=== PATIENT | female | born 1970 | race Caucasian/White ===

== ENCOUNTER 2018-06-04 12:14 | Emergency (ER) | payer BC ==
[2018-06-04] MEDS ORDERED: SODIUM CHLORIDE 0.9% 1,000 ML IV STA ×2 (12:53)
[2018-06-04 13:18] LABS: Basophils % (A) 0 %; Eosinophils # (A) 0.2 k/uL (0-0.7); Eosinophils % (A) 3 %; HCT 39.7 % (34.0-46.0); HGB 13.1 gm/dL (11.4-16.0); Lymphocytes # (A) 1.7 k/uL (1.0-4.8); Lymphocytes % (A) 31 %; MCH 28.5 pg (25.0-35.0); MCHC 33.1 g/dL (31.0-37.0); MCV 86.2 fL (80.0-100.0); Mean Platelet Volume 6.4; Monocytes # (A) 0.3 k/uL (0-1.0); Monocytes % (A) 6 %; Neutrophils # (A) 3.1 k/uL (1.3-7.7); Neutrophils % (A) 57 %; Platelet Count 285 k/uL (150-450); RBC 4.61 m/uL (3.80-5.40); RDW 12.8 % (11.5-15.5); WBC 5.5 k/uL (3.8-10.6)
[2018-06-04 13:28] LABS: ALT 17 U/L (9-52); AST 28 U/L (14-36); Alkaline Phosphatase 69 U/L (38-126); Anion Gap 9 mmol/L; Blood Urea Nitrogen 16 mg/dL (7-17); Calcium 9.3 mg/dL (8.4-10.2); Carbon Dioxide 22 mmol/L (22-30); Chloride 111 mmol/L (98-107); Glucose 101 mg/dL (74-99); Potassium 4.5 mmol/L (3.5-5.1); Sodium 142 mmol/L (137-145); Total Bilirubin 0.6 mg/dL (0.2-1.3); Total Protein 6.8 g/dL (6.3-8.2)
--- NOTE | 2018-06-04 13:28 | XR ---
EXAMINATION TYPE: XR chest 2V DATE OF EXAM: 06/04/2018 HISTORY: difficulty breathing. REFERENCE: Previous study dated 02/01/2011. FINDINGS: The lungs are clear. Pleural space are clear. The heart is not enlarged. IMPRESSION: NORMAL CHEST.
[2018-06-04 13:31] LABS: Creatine Kinase 106 U/L (30-135)
[2018-06-04 13:36] LABS: D-Dimer 0.36 mg/L FEU (<0.60); INR 1.1 (<1.2); Partial Thromboplastin Time 24.2 sec (22.0-30.0); Prothrombin Time 10.3 sec (9.0-12.0)
[2018-06-04 13:45] LABS: Creatine Kinase MB 0.8 ng/mL (0.0-2.4); Troponin I <0.012 ng/mL (0.000-0.034)
--- NOTE | 2018-06-04 14:40 | ED ---
General Adult HPI - General Chief complaint: Shortness of Breath Stated complaint: Brusing all over body/sob Time Seen by Provider: 06/04/18 12:30 Source: patient, RN notes reviewed, old records reviewed Mode of arrival: ambulatory Limitations: no limitations - History of Present Illness Initial comments: Patient is a 47-year-old female who presents emergency Department with multiple complaints. She reports that over the past week she's noticed a pruritic rash over her lower extremities, only seems to be worse at night. She's also noticed increased bruising over her arms legs. She reports that she also feels is having some trouble with breathing. She states she feels just off and somewhat dizzy. At this time patient's vital signs of an stable. Patient states that she's had no vomiting or diarrhea or abdominal pain. Patient states that she did recently travel from [facility]. - Related Data Previous Rx's Medication Instructions Recorded predniSONE 50 mg PO DAILY #7 tablet 06/04/18 Allergies Allergy/AdvReac Type Severity Reaction Status Date / Time No Known Allergies Allergy Verified 06/04/18 12:25 Review of Systems ROS Statement: Those systems with pertinent positive or pertinent negative responses have been documented in the HPI. ROS Other: All systems not noted in ROS Statement are negative. Past Medical History Past Medical History: No Reported History History of Any Multi-Drug Resistant Organisms: None Reported Additional Past Surgical History / Comment(s): right knee Past Psychological History: No Psychological Hx Reported Smoking Status: Never smoker Past Alcohol Use History: Occasional Past Drug Use History: None Reported General Exam - General Exam Comments Initial Comments: This patient's a 47-year-old female. Alert and oriented. Patient appears in no acute distress. Limitations: no limitations General appearance: alert, in no apparent distress Head exam: Present: atraumatic, normocephalic, normal inspection Eye exam: Present: normal appearance, PERRL, EOMI. Absent: scleral icterus, conjunctival injection, periorbital swelling ENT exam: Present: normal exam, mucous membranes moist Neck exam: Present: normal inspection Respiratory exam: Present: normal lung sounds bilaterally. Absent: respiratory distress, wheezes, rales, rhonchi, stridor Cardiovascular Exam: Present: regular rate, normal rhythm, normal heart sounds. Absent: systolic murmur, diastolic murmur, rubs, gallop, clicks GI/Abdominal exam: Present: soft Extremities exam: Present: normal inspection, full ROM, normal capillary refill. Absent: tenderness, pedal edema, joint swelling, calf tenderness Back exam: Present: normal inspection Neurological exam: Present: alert, oriented X3, CN II-XII intact Psychiatric exam: Present: normal affect, normal mood Skin exam: Present: warm, dry, intact, normal color, rash (Denies erythematous papular pruritic rash over lower extremities. Patient has had bruising patterns of her upper arm and leg. She reports no concern for abuse.) Course Vital Signs 06/04/18 06/04/18 12:22 14:00 Temperature 98.2 F Pulse Rate 97 Respiratory 18 Rate Blood Pressure 136/82 142/98 O2 Sat by Pulse 100 99 Oximetry Medical Decision Making - Medical Decision Making This patient's a 39-year-old female presents emergency Department with multiple complaints, complaining of abnormal bruising, strange rash over her lower extremities for the past week. She also complains of some trouble breathing. She has no wheezing at this time, lungs are clear to auscultation. Patient's EKG was reviewed and negative for any acute process. Chest x-ray was normal. Cardiac enzymes including troponin as well as a d-dimer were both negative. This time Patient is reevaluated. She does feel somewhat well because she is just "off. I examine the Patient with Dr. Christopher. I do believe patient's rash as well as abnormal bruising could be related to an autoimmune vasculitis. He recommends starting the Patient on steroids with follow-up with rheumatology in dermatology. I did discuss close return parameters including worsening shortness of breath or any other complaints. Patient agrees to treatment plan will comply. Will discharge Patient on 50 mg prednisone. - Lab Data Result diagrams: 06/04/18 13:08 06/04/18 13:08 Lab Results 06/04/18 06/04/18 06/04/18 Range/Units 13:08 13:08 13:08 WBC 5.5 (3.8-10.6) k/uL RBC 4.61 (3.80-5.40) m/uL Hgb 13.1 (11.4-16.0) gm/dL Hct 39.7 (34.0-46.0) % MCV 86.2 (80.0-100.0) fL MCH 28.5 (25.0-35.0) pg MCHC 33.1 (31.0-37.0) g/dL RDW 12.8 (11.5-15.5) % Plt Count 285 (150-450) k/uL Neutrophils % 57 % Lymphocytes % 31 % Monocytes % 6 % Eosinophils % 3 % Basophils % 0 % Neutrophils # 3.1 (1.3-7.7) k/uL Lymphocytes # 1.7 (1.0-4.8) k/uL Monocytes # 0.3 (0-1.0) k/uL Eosinophils # 0.2 (0-0.7) k/uL Basophils # 0.0 (0-0.2) k/uL PT (9.0-12.0) sec INR (<1.2) APTT (22.0-30.0) sec D-Dimer (<0.60) mg/L FEU Sodium 142 (137-145) mmol/L Potassium 4.5 (3.5-5.1) mmol/L Chloride 111 H (98-107) mmol/L Carbon Dioxide 22 (22-30) mmol/L Anion Gap 9 mmol/L BUN 16 (7-17) mg/dL Creatinine 0.61 (0.52-1.04) mg/dL Est GFR (CKD-EPI)AfAm >90 (>60 ml/min/1.73 sqM) Est GFR (CKD-EPI)NonAf >90 (>60 ml/min/1.73 sqM) Glucose 101 H (74-99) mg/dL Calcium 9.3 (8.4-10.2) mg/dL Magnesium 2.0 (1.6-2.3) mg/dL Total Bilirubin 0.6 (0.2-1.3) mg/dL AST 28 (14-36) U/L ALT 17 (9-52) U/L Alkaline Phosphatase 69 (38-126) U/L Total Creatine Kinase 106 (30-135) U/L CK-MB (CK-2) 0.8 (0.0-2.4) ng/mL CK-MB (CK-2) Rel Index 0.8 Troponin I <0.012 (0.000-0.034) ng/mL Total Protein 6.8 (6.3-8.2) g/dL Albumin 4.0 (3.5-5.0) g/dL 06/04/18 Range/Units 13:08 WBC (3.8-10.6) k/uL RBC (3.80-5.40) m/uL Hgb (11.4-16.0) gm/dL Hct (34.0-46.0) % MCV (80.0-100.0) fL MCH (25.0-35.0) pg MCHC (31.0-37.0) g/dL RDW (11.5-15.5) % Plt Count (150-450) k/uL Neutrophils % % Lymphocytes % % Monocytes % % Eosinophils % % Basophils % % Neutrophils # (1.3-7.7) k/uL Lymphocytes # (1.0-4.8) k/uL Monocytes # (0-1.0) k/uL Eosinophils # (0-0.7) k/uL Basophils # (0-0.2) k/uL PT 10.3 (9.0-12.0) sec INR 1.1 (<1.2) APTT 24.2 (22.0-30.0) sec D-Dimer 0.36 (<0.60) mg/L FEU Sodium (137-145) mmol/L Potassium (3.5-5.1) mmol/L Chloride (98-107) mmol/L Carbon Dioxide (22-30) mmol/L Anion Gap mmol/L BUN (7-17) mg/dL Creatinine (0.52-1.04) mg/dL Est GFR (CKD-EPI)AfAm (>60 ml/min/1.73 sqM) Est GFR (CKD-EPI)NonAf (>60 ml/min/1.73 sqM) Glucose (74-99) mg/dL Calcium (8.4-10.2) mg/dL Magnesium (1.6-2.3) mg/dL Total Bilirubin (0.2-1.3) mg/dL AST (14-36) U/L ALT (9-52) U/L Alkaline Phosphatase (38-126) U/L Total Creatine Kinase (30-135) U/L CK-MB (CK-2) (0.0-2.4) ng/mL CK-MB (CK-2) Rel Index Troponin I (0.000-0.034) ng/mL Total Protein (6.3-8.2) g/dL Albumin (3.5-5.0) g/dL 06/04/18 14:45 EKG shows normal sinus rhythm abnormal EKG noted. Ventricular rate of 85 bpm. Intervals 1:30 milliseconds. QRS ration 88. QTQTC 366/435 ms. - Radiology Data Radiology results: report reviewed Normal chest x-ray noted. Disposition Clinical Impression: Pruritic dermatitis, Abnormal bruising, Dizziness Disposition: HOME SELF-CARE Condition: Good Instructions: Acute Rash (ED), Dyspnea (ED) Additional Instructions: Patient has follow-up with dermatology and rheumatology as well as her primary care provider. Take the steroids as prescribed, Patient can also use Benadryl for the itching. Return to emergency department if any alarming signs or symptoms occur. Prescriptions: predniSONE 50 mg PO DAILY #7 tablet Is patient prescribed a controlled substance at d/c from ED?: No Referrals: Baldemar Swanson MD [Primary Care Provider] - 1-2 days William Poe MD [STAFF PHYSICIAN] - 1-2 days Tammy Frazier MD [STAFF PHYSICIAN] - 1-2 days Time of Disposition: 14:38
[2018-06-04 14:49] VITALS: BP 136/91; PULSE 85; RESP 16; TEMP 98.6
== END 2018-06-04 14:49 | disposition home or self-care (01) ==
LOC: EC 12:14
DX: L30.8 Other specified dermatitis (principal); R42 Dizziness and giddiness; M79.81 Nontraumatic hematoma of soft tissue; R94.31 Abnormal electrocardiogram [ECG] [EKG]; R06.00 Dyspnea, unspecified
CPT/HCPCS: 36415; 71046; 80053; 82550; 82553; 83735; 84484; 85025; 85379; 85610; 85730; 87040; 93005; 96360; 96361; 99285

== ENCOUNTER → 2018-10-18 | Outpatient (CLI) | payer BC ==
--- NOTE | 2018-10-18 22:29 | US ---
EXAMINATION TYPE: US thyroid st tissue head/neck DATE OF EXAM: 10/18/2018 COMPARISON: None CLINICAL HISTORY: Left Neck Mass K11.8. Palpable area left lateral neck x 2 months per patient. Left Neck scanned area of concern: 2 Hypoechoic areas with echogenic centers seen left lateral neck. 1: 0.8 x 0.3 x 0.4 cm. Vascularity visualized. 2: 1.9 x 0.3 x 0.9 cm. Technologist darling oval well-defined lesions on images saved. First lesion is felt to reflect normal benign lymph node as it is subcentimeter in size on short axis with retained fatty hilum. Second lesi on is elongated and subcentimeter in size but distinct fatty hilum is not identified. IMPRESSION: As above, second lesion does not meet ultrasound characteristics for benign lymph node but is subcent imeter in size still favoring benign etiology. Advise contrast enhanced neck CT to further evaluate t o assess for possible additional lymph nodes and/or throat masses.
== END | disposition home or self-care (01) ==
LOC: RADUSWWP 17:00
PROVIDERS: ATTEND Internal Medicine Geriatric Medicine
DX: K11.8 Other diseases of salivary glands (principal)
CPT/HCPCS: 76536

== ENCOUNTER → 2018-10-20 | Outpatient (CLI) | payer BC ==
--- NOTE | 2018-10-20 09:49 | MM ---
Reason for exam: clinical finding. Last mammogram was performed 8 years and 2 months ago. History: Benign excisional biopsy of the left breast. Physical Findings: Nurse did not find any significant physical abnormalities on exam. MG Diagnostic Mammo w CAD TRACI Bilateral CC, MLO, and LM view(s) were taken. Spot compression MLO view(s) were taken of the right breast. Prior study comparison: August 26, 2010, CAD bilateral diagnostic mammogram. The breast tissue is heterogeneously dense. This may lower the sensitivity of mammography. These results were verbally communicated with the patient and result sheet given to the patient on 10/20/18. ASSESSMENT: Incomplete: need additional imaging evaluation, BI-RAD 0 RECOMMENDATION: Ultrasound of both breasts.
--- NOTE | 2018-10-20 09:50 | USB ---
Reason for exam: additional evaluation requested from abnormal screening. History: Benign excisional biopsy of the left breast. US Breast Limited BILAT Right limited breast ultrasound including focal area of concern, retroareolar and axilla demonstrates no cystic or solid lesion seen. Left limited breast ultrasound including focal area of concern, retroareolar and axilla demonstrates no cystic or solid lesion seen. These results were verbally communicated with the patient and result sheet given to the patient on 10/20/18. ASSESSMENT: Negative, BI-RAD 1 RECOMMENDATION: Routine screening mammogram of both breasts in 1 year.
== END | disposition home or self-care (01) ==
LOC: RADMAMWWP 07:29
PROVIDERS: ATTEND Internal Medicine Geriatric Medicine
DX: N63.0 Unspecified lump in unspecified breast (principal)
CPT/HCPCS: 77066

== ENCOUNTER → 2018-11-15 | Outpatient (CLI) | payer BC ==
--- NOTE | 2018-11-15 08:53 | CT ---
EXAMINATION TYPE: CT soft tissue neck w con DATE OF EXAM: 11/15/2018 HISTORY: Lt neck mass or swelling for 2 months. Soft tissue lymphadenitis per order. COMPARISON: NONE CT DLP: 520.1 mGycm. Automated Exposure Control for Dose Reduction was Utilized. TECHNIQUE: CT scan of the neck is performed with IV Contrast, patient injected with 100 mL of Isovue 300, axial images are obtained, coronal and sagittal reformatted images are reviewed. FINDINGS: There is metallic BB placed at level of palpable abnormality left submandibular region axia l image 50. Normal platysma muscle is seen extending anterior to this. This is at the inferior margin of the left parotid gland. There are few tiny vessels superficial to the sternocleidomastoid muscle . No worrisome solid or cystic mass or fluid collection is noted. Airway: No gross abnormality seen. Parotid/submandibular glands: No gross abnormality seen. Carotid/Vascular Structures: No significant plaque or stenosis at carotid bulb level bilaterally. Cod ominant vertebral basilar system. Osseous Structures: Mild to moderate disc space narrowing and spurring C5-C6 and C6-C7 levels with po sterior spur disc complexes effacing anterior thecal sac. Other: No suspicious greater than 1 cm neck adenopathy. Few scattered subcentimeter lymph nodes are p resent bilaterally. IMPRESSION: No suspicious left-sided mass or adenopathy.
== END | disposition home or self-care (01) ==
LOC: RADCTMAIN 07:17
PROVIDERS: ATTEND Family Medicine
DX: I88.1 Chronic lymphadenitis, except mesenteric (principal)
CPT/HCPCS: 70491; Q9967

== ENCOUNTER → 2019-03-16 | Outpatient (CLI) | payer BC ==
[2019-03-16 10:00] LABS: Basophils % (A) 0 %; Eosinophils # (A) 0.1 k/uL (0-0.7); Eosinophils % (A) 2 %; HCT 41.5 % (34.0-46.0); HGB 13.8 gm/dL (11.4-16.0); Lymphocytes # (A) 1.6 k/uL (1.0-4.8); Lymphocytes % (A) 32 %; MCH 28.6 pg (25.0-35.0); MCHC 33.2 g/dL (31.0-37.0); MCV 86.1 fL (80.0-100.0); Mean Platelet Volume 6.3; Monocytes # (A) 0.3 k/uL (0-1.0); Monocytes % (A) 6 %; Neutrophils # (A) 2.8 k/uL (1.3-7.7); Neutrophils % (A) 58 %; Platelet Count 302 k/uL (150-450); RBC 4.82 m/uL (3.80-5.40); RDW 12.8 % (11.5-15.5); WBC 4.9 k/uL (3.8-10.6)
[2019-03-16 10:33] LABS: Potassium 4.1 mmol/L (3.5-5.1)
== END | disposition home or self-care (01) ==
LOC: LABPAT 09:11
PROVIDERS: ATTEND Orthopaedic Surgery
DX: Z01.812 Encounter for preprocedural laboratory examination (principal); M23.92 Unspecified internal derangement of left knee
CPT/HCPCS: 36415; 80051; 85025

== ENCOUNTER 2019-03-23 08:24 | Day surgery (SDC) | payer BC ==
[2019-03-19 11:02] VITALS: BMI 41.8
--- NOTE | 2019-03-22 10:49 | HP ---
HISTORY AND PHYSICAL CHIEF COMPLAINT: Left knee pain. 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 She notes lateral pain along with occasional swelling and giving way. She has tried medications with only partial temporary relief. She notes the pain severely limits her normal function and activities. PAST MEDICAL HISTORY: Negative. PAST SURGICAL HISTORY: Significant for previous Achilles repair in addition to previous shoulder arthroscopy. CURRENT MEDICATION: Ibuprofen. She denies drug allergies. FAMILY HISTORY: Significant for cancer. SOCIAL HISTORY: Negative for current tobacco or alcohol use. REVIEW OF SYSTEMS: A 16-point review of systems otherwise reviewed and is noncontributory. PHYSICAL EXAMINATION: On examination, the patient is approximately 5 foot 8, 280 pounds of endomorphic habitus. HEENT exam is nonfocal. Neck is supple. She has painless passive motion of her left hip. Straight leg raise is negative. Active motion left knee -10 to 100 degrees of flexion. She has a mild effusion. She is tender about the lateral joint line. Collaterals are stable, Giancarlo is negative, Bradley's elicits lateral pain. Her distal neurovascular appears intact in the left lower extremity. Weightbearing, notch, lateral and Merchant views of the left knee obtained in the office show moderate medial and patellofemoral compartment narrowing. MRI report from 01/31/2019 Left knee shows evidence of a chondral defect involving the lateral tibial plateau in addition to lateral patellar facet chondral injury and femoral trochlear chondral injury. IMPRESSION: Left knee internal derangement with possible lateral tibial chondral injury. RECOMMENDATIONS: I talked to the patient at length regarding her condition and treatment options. At this point, she is quite symptomatic despite conservative measures and opts to proceed with surgery. We will plan to proceed with arthroscopic evaluation with possible lateral tibial chondrectomy. Risks and benefits were discussed at length in layman's terms. We will likely perform that as an outpatient procedure. MMODL / IJN: [id number] /
[~2019-03-23 08:24] MED LIST: DEXAMETHASONE SOD PHOSPHATE 10 MG/ML 1 ML VIAL IV ONE; LACTATED RINGERS 1,000 ML IV SCH; MIDAZOLAM 2 MG/2 ML VIAL IV PRN; ONDANSETRON 4 MG/2 ML VIAL IVP ONE; SCOPOLAMINE 1.5MG/72HR PATCH TRANSDERM ONE; ceFAZolin 3 GM in SODIUM CHLORIDE 0.9% 100 ML IVPB ONE
[2019-03-23 09:02] VITALS: TEMP 97.4
[2019-03-23] MEDS ORDERED: fentaNYL (PF) 50 MCG/ML 2 ML AMP IVP ONE (09:20)
[2019-03-23] MEDS ORDERED: LIDOCAINE 1% INJ 10MG/ML (20 ML MDV) ONE (09:53)
[2019-03-23] MEDS ORDERED: MIDAZOLAM 2 MG/2 ML VIAL ONE (09:53)
[2019-03-23] MEDS ORDERED: KETOROLAC 30 MG/ML 1 ML VIAL ONE (09:53)
[2019-03-23] MEDS ORDERED: HYDROmorphone (PF) 1 MG/ML ONE (09:53)
[2019-03-23] MEDS ORDERED: fentaNYL (PF) 50 MCG/ML 2 ML AMP ONE (09:53)
[2019-03-23] MEDS ORDERED: PROPOFOL 10 MG/ML 20 ML VIAL IV ONE (09:53)
[2019-03-23] MEDS ORDERED: SUCCINYLCHOLINE CHLORIDE 100 MG/5 ML SYR IV ONE (09:53)
[2019-03-23] MEDS ORDERED: EPINEPHrine (PF) 1 ML in SODIUM CHLORIDE 0.9% IRRIGATIO 3,000 ML IRRIGATION ONE ×4 (10:20)
--- NOTE | 2019-03-23 10:57 | P.OP ---
Date of Procedure: 03/23/19 Preoperative Diagnosis: Left knee internal derangement Postoperative Diagnosis: Left knee posterior lateral meniscal tear/grade 3 chondral injury distal medial femoral condyle/loose body Procedure(s) Performed: Left knee arthroscopic partial lateral meniscectomy/medial femoral chondrectomy/microfracture medial femoral condyle/loose body removal Anesthesia: BEBO Surgeon: Cedric Rodriguez Estimated Blood Loss (ml): 10 Pathology: none sent Condition: stable Disposition: PACU Indications for Procedure: The patient's a 48-year-old female who presents with progressive left knee pain and mechanical symptoms despite conservative measures. A discussion of the risks and benefits of operative intervention versus continued conservative measures was made with the patient. She opted to proceed. Operative risks to include infection, neurovascular injury, development of blood clots, possible incomplete resolution of symptoms, possible worsening symptoms and need for subsequent procedures was discussed. Informed consent was obtained. Operative Findings: As below Description of Procedure: The patient was brought to the operating room, and after induction of general anesthesia examined the left knee. Collaterals were stable, Giancarlo was negative, and posterior drawer was negative. The left lower extremity was prepped and draped in a normal fashion. A superior lateral portal was made through a 3 mm skin incision superior and lateral to the patella. This was used for outflow. A lateral portal was made through a 5 mm vertical skin incision lateral to the patella tendon above the joint line. Diagnostic arthroscopy was performed. On inspection of the medial compartment, a grade 3 chondral injury was noted involving the distal medial portion of the medial femoral condyle. There were several loose chondral flaps treated back to stable base with a motorized shaver. The medial meniscus was stable and intact. Microfractures performed utilizing a chondral breeching the subchondral surface down to the bone marrow elements. On inspection of the notch, the anterior cruciate ligament appeared to be intact. On inspection of the lateral compartment, and oblique tear involving the posterior lateral meniscus was noted in the white- white junction. This was debrided back to stable base with straight baskets and a motorized shaver. The remaining lateral meniscus was stable and intact. Diffuse grade 2 chondral changes were noted in the lateral compartment.. On inspection of the patellofemoral articulation there was a loose body in the lateral gutter. This was removed with a grasper. There is grade 3/4 chondral changes noted involving the lateral femoral trochlea and lateral facet.. The knee was then thoroughly irrigated. The portals were closed with Steri-Strips. A sterile dressing was applied in addition to a compression stocking. The patient was awoken from general anesthesia and transferred to recovery room in good condition. Blood loss was estimated at 10 mL. No complications were incurred.
[2019-03-23] MEDS: HYDROmorphone 0.5 MG/0.5 ML SYRINGE IVP PRN ×4 (11:00→11:26)
[2019-03-23] MEDS ORDERED: ENALAPRILAT 1.25 MG/ML 1 ML VIAL IV ONE (11:26)
[2019-03-23] MEDS ORDERED: ENALAPRILAT 1.25 MG/ML 1 ML VIAL IVP ONE (11:34)
[2019-03-23] MEDS ORDERED: MEPERIDINE 50 MG/ML SYRINGE IVP ONE (11:50)
[2019-03-23] MEDS ORDERED: PROMETHAZINE INJ 25 MG/ML 1 ML VIAL IVPB ONE (12:56)
[2019-03-23 14:36] VITALS: BP 123/85; PULSE 92; RESP 18
[2019-03-23] MEDS ORDERED: IBUPROFEN 200 MG TAB PO ONE (14:50)
== END 2019-03-23 15:44 | disposition home or self-care (01) ==
LOC: OR 08:24
PROVIDERS: ATTEND Orthopaedic Surgery
DX: S83.282A Other tear of lateral meniscus, current injury, left knee, initial encounter (principal); S83.32XA Tear of articular cartilage of left knee, current, initial encounter; X58.XXXA Exposure to other specified factors, initial encounter; E66.9 Obesity, unspecified; Z68.41 Body mass index [BMI] 40.0-44.9, adult; Z79.891 Long term (current) use of opiate analgesic; Z79.1 Long term (current) use of non-steroidal anti-inflammatories (NSAID)
CPT/HCPCS: 81025; 29881; 29879; J2250; J1100; J2550; J2175; J0690; J2405; J0171; J2001; J3010; J1885; J1170 ×2; J0330; J2704

== ENCOUNTER → 2019-03-30 | Outpatient (CLI) | payer BC ==
--- NOTE | 2019-03-30 15:01 | US ---
EXAMINATION TYPE: US venous doppler duplex LE LT DATE OF EXAM: 03/30/2019 2:46 PM COMPARISON: NONE CLINICAL HISTORY: M79.662 R22.42 Pain Swelling Left Lower Leg. SIDE PERFORMED: Left TECHNIQUE: The lower extremity deep venous system is examined utilizing real time linear array sonog kadeem with graded compression, doppler sonography and color-flow sonography. VESSELS IMAGED: External Iliac Vein (EIV) Common Femoral Vein Deep Femoral Vein Greater Saphenous Vein * Femoral Vein Popliteal Vein Small Saphenous Vein * Proximal Calf Veins (* superficial vessels) Left Leg: Negative for DVT Preliminary results phoned to Norma at Dr. Connors' office immediately following exam. IMPRESSION: 1. Left lower extremity ultrasound negative for deep venous thrombosis.
== END | disposition home or self-care (01) ==
LOC: RADUSWWP 14:13
PROVIDERS: ATTEND Orthopaedic Surgery
DX: M79.662 Pain in left lower leg (principal)

== ENCOUNTER → 2020-10-08 | Outpatient (CLI) | payer BC ==
--- NOTE | 2020-10-09 09:52 | CT ---
EXAMINATION TYPE: CT angio neck DATE OF EXAM: 10/08/2020 COMPARISON: None HISTORY: 49-year-old female I77.1, stricture of artery. Dizziness, left sided neck swelling, left arm pain and numbness TECHNIQUE: Contiguous axial scanning of the neck performed with IV Contrast, patient injected with 65 cc mL of Isovue 370. Coronal/sagittal MIP reconstructions performed. 3-D reconstructions generated on a dedicated PET workstation. CT DLP: 385.8 mGycm Automated exposure control for dose reduction was used. FINDINGS: There may be some tree-in-bud opacities in the visualized upper lobes. Conventional arch vessel branching anatomy. Dense contrast bolus on the left side obscures the proximal most left vertebral artery. Otherwise, th e remaining vertebral arteries are codominant and patent throughout the course. The right common and internal carotid arteries are patent. Left common and internal carotid arteries are patent. Some focal tortuosity of the upper ICAs and both sides. Moderate disc/endplate degenerative change lower cervical spine. IMPRESSION: 1. TORTUOUS BILATERAL UPPER CERVICAL ICA's. 2. THE PROXIMAL MOST LEFT VERTEBRAL ARTERY IS OBSCURED BY THE DENSE CONTRAST BOLUS. OTHERWISE, WIDELY PATENT CAROTID AND VERTEBRAL ARTERIES OF THE NECK. 3. CORRELATE FOR ANY RESPIRATORY SYMPTOMS. THERE MAY BE SOME SUBTLE TREE-IN-BUD OPACITIES IN THE VISU ALIZED UPPER LUNGS THAT MAY BE SEEN WITH BRONCHIOLITIS.
== END ==
LOC: RADCTMAIN 18:34
PROVIDERS: ATTEND Internal Medicine Geriatric Medicine
DX: I77.1 Stricture of artery (principal)
CPT/HCPCS: 70498; Q9967

== ENCOUNTER 2021-10-26 21:38 | Emergency (ER) | payer BC ==
[2021-10-26 21:50] VITALS: TEMP 97.5
--- NOTE | 2021-10-26 23:29 | ED ---
Chest Pain HPI - General Chief Complaint: Chest Pain Stated Complaint: TRISTAN,Chest Pain Time Seen by Provider: 10/26/21 22:44 Source: patient Mode of arrival: ambulatory Limitations: no limitations - History of Present Illness Initial Comments: This patient is a 50-year-old woman presenting to be evaluated for upper chest pain that is been going on between 1 and 2 weeks. She describes as a heavy feeling that she is not able to characterize well. She states it also seems to be into the left side of her neck and she is following with ENT tomorrow. She is due to have an effusion drained from her left ear. She states that this will be followed by another procedure November 12. She has been having left ear and neck pains going back quite some time and did recently have a CT and an MRI done of the area. The patient denies any anginal type symptoms. No diaphoresis, dyspnea, nausea vomiting, palpitations, lightheadedness or syncope. MD Complaint: chest pain -: week(s) Onset: during rest Pain Location: substernal Pain Radiation: none Severity: mild Quality: heaviness Consistency: intermittent Improves With: other (Position) Worsens With: nothing Treatments Prior to Arrival: none - Related Data Home Medications Medication Instructions Recorded Confirmed clindamycin HCL [Cleocin] 300 mg PO BID 10/26/21 10/26/21 predniSONE See Taper PO DAILY 10/26/21 10/26/21 Allergies Allergy/AdvReac Type Severity Reaction Status Date / Time No Known Allergies Allergy Verified 10/26/21 21:50 Review of Systems ROS Statement: Those systems with pertinent positive or pertinent negative responses have been documented in the HPI. ROS Other: All systems not noted in ROS Statement are negative. Constitutional: Denies: fever, chills Respiratory: Reports: dyspnea. Denies: cough Cardiovascular: Reports: as per HPI, chest pain. Denies: palpitations, orthopnea, edema, syncope Gastrointestinal: Denies: abdominal pain, nausea, vomiting, diarrhea, constipation Genitourinary: Denies: urgency, dysuria, frequency Musculoskeletal: Denies: back pain Skin: Denies: rash Neurological: Reports: headache (Being seen by ENT physician for effusion and left ear pain) EKG Findings - EKG Comments: EKG Findings:: There is possible atrial enlargement. - EKG Results: EKG: interpreted by JUDAH, sinus rhythm, normal axis, normal QRS, normal ST/T Past Medical History Past Medical History: No Reported History History of Any Multi-Drug Resistant Organisms: None Reported Additional Past Surgical History / Comment(s): achillles tenden repair on lt, rt knee arthrosocpy. recent rt shoulder sx(05-02-14). Past Anesthesia/Blood Transfusion Reactions: No Reported Reaction Past Psychological History: No Psychological Hx Reported Smoking Status: Never smoker Past Alcohol Use History: Occasional Past Drug Use History: None Reported - Past Family History Father Family Medical History: Hypertension Additional Family Medical History / Comment(s): dad is 75 Mother Family Medical History: Cancer, Thyroid Disorder Additional Family Medical History / Comment(s): mom is 65- has stage 4 ovarian cancer. hx manic deprsssive, General Exam Limitations: no limitations General appearance: alert, in no apparent distress Head exam: Present: atraumatic, normocephalic Eye exam: Present: normal appearance Neck exam: Present: normal inspection, full ROM. Absent: tenderness Respiratory exam: Present: normal lung sounds bilaterally. Absent: respiratory distress, wheezes, rales, rhonchi, stridor, chest wall tenderness Cardiovascular Exam: Present: regular rate, normal rhythm, normal heart sounds. Absent: systolic murmur, diastolic murmur, rubs, gallop GI/Abdominal exam: Present: soft. Absent: distended, tenderness, guarding, rebound, rigid, mass Extremities exam: Present: normal inspection, normal capillary refill. Absent: pedal edema, calf tenderness Back exam: Present: normal inspection. Absent: CVA tenderness (R), CVA tenderness (L) Neurological exam: Present: alert Skin exam: Present: warm, dry, intact, normal color. Absent: rash Course Vital Signs 10/26/21 10/26/21 10/27/21 21:47 23:35 00:52 Temperature 97.5 F L Pulse Rate 90 77 78 Respiratory 18 18 16 Rate Blood Pressure 152/92 150/89 147/92 O2 Sat by Pulse 99 95 98 Oximetry Disposition Clinical Impression: Chest pain Disposition: HOME SELF-CARE Condition: Good Instructions (If sedation given, give patient instructions): Chest Pain (ED) Additional Instructions: As we discussed, follow with the learning analyst to discuss the tree-in-bud findings from your previous computed tomography scan. I have listed the on-call learning analyst, but call your primary care physician to see if there learning analyst of choice is available sooner Is patient prescribed a controlled substance at d/c from ED?: No Referrals: Hima Chavez MD [Primary Care Provider] - 1-2 days Mirza Crump MD [STAFF PHYSICIAN] - 1-2 days
--- NOTE | 2021-10-27 00:07 | XR ---
EXAMINATION TYPE: XR chest 2V DATE OF EXAM: 10/26/2021 COMPARISON: 05/27/2018 HISTORY: Short of breath. Chest pain TECHNIQUE: FINDINGS: Heart and mediastinum are normal. Lungs are clear. Diaphragm is normal. Bony thorax appears normal. IMPRESSION: Normal chest. No change from
[2021-10-27 00:37] LABS: Basophils # (A) 0.1 k/uL (0-0.2); Basophils % (A) 1 %; Eosinophils % (A) 0 %; HGB 13.4 gm/dL (11.4-16.0); Lymphocytes % (A) 15 %; MCHC 33.4 g/dL (31.0-37.0); MCV 89.8 fL (80.0-100.0); Mean Platelet Volume 7.3; Monocytes # (A) 0.3 k/uL (0-1.0); Monocytes % (A) 4 %; Neutrophils # (A) 5.5 k/uL (1.3-7.7); Neutrophils % (A) 80 %; Platelet Count 316 k/uL (150-450); RBC 4.45 m/uL (3.80-5.40); RDW 12.4 % (11.5-15.5); WBC 6.9 k/uL (3.8-10.6)
[2021-10-27] MEDS ORDERED: MORPHINE SULFATE 4 MG/ML SYRINGE IV STA (00:38)
[2021-10-27 00:44] LABS: ALT 16 U/L (4-34); AST 19 U/L (14-36); African American GFR (CKD) >90 (>60 ml/min/1.73 sqM); Albumin 4.4 g/dL (3.5-5.0); Alkaline Phosphatase 71 U/L (38-126); Anion Gap 8 mmol/L; Blood Urea Nitrogen 23 mg/dL (7-17); Calcium 9.5 mg/dL (8.4-10.2); Carbon Dioxide 28 mmol/L (22-30); Chloride 102 mmol/L (98-107); Glucose 136 mg/dL (74-99); Magnesium 2.1 mg/dL (1.6-2.3); Non-African American GFR(CKD) >90 (>60 ml/min/1.73 sqM); Potassium 4.6 mmol/L (3.5-5.1); Sodium 138 mmol/L (137-145); Total Bilirubin 0.5 mg/dL (0.2-1.3); Total Protein 7.1 g/dL (6.3-8.2)
[2021-10-27 00:49] LABS: INR 0.9 (<1.2); Partial Thromboplastin Time 23.7 sec (22.0-30.0); Prothrombin Time 10.4 sec (9.0-12.0)
[2021-10-27 00:53] VITALS: RESP 16
[2021-10-27 01:42] VITALS: BP 146/94; PULSE 84
== END 2021-10-27 01:39 | disposition home or self-care (01) ==
LOC: EC 21:38
DX: R07.9 Chest pain, unspecified (principal)
CPT/HCPCS: 36415; 93005; 85379; 80053; 83735; 84484; 85025; 85610; 85730; 71046; 99285; 96372; J2270

== ENCOUNTER → 2021-11-06 | Outpatient (CLI) | payer BC ==
[2021-11-06 10:55] LABS: Basophils # (A) 0.03 X 10*3/uL (0.00-0.10); Basophils % (A) 0.5 %; Eosinophils % (A) 1.8 %; HCT 39.5 % (37.2-46.3); HGB 13.3 g/dL (12.0-15.0); Immature Grans, Automated 0.9 %; Lymphocytes # (A) 2.28 X 10*3/uL (0.90-5.00); Lymphocytes % (A) 40.9 %; MCH 29.5 pg (27.0-32.0); MCHC 33.7 g/dL (32.0-37.0); MCV 87.6 fL (80.0-97.0); Mean Platelet Volume 9.2 fL (9.5-12.2); Monocytes # (A) 0.58 X 10*3/uL (0.20-1.00); Monocytes % (A) 10.4 %; NRBC Per 100 WBC 0 /100 WBCS (0.0-0.0); Neutrophils # (A) 2.53 X 10*3/uL (1.80-7.70); Neutrophils % (A) 45.5 %; Platelet Count 272 X 10*3/uL (140-440); RBC 4.51 X 10*6/uL (4.10-5.20); RDW 12.5 % (11.5-14.5); WBC 5.57 X 10*3/uL (4.50-10.00)
[2021-11-06 17:47] LABS: EBV-EA (IgG) >8.0 AI; EBV-EBNA(IgG) >8.0 AI; EBV-VCA (IgM) <0.2 AI
== END | disposition home or self-care (01) ==
LOC: LABWHC1 07:55
PROVIDERS: ATTEND Otolaryngology
DX: Z00.00 Encounter for general adult medical examination without abnormal findings (principal)
CPT/HCPCS: 36415; 83615; 85025; 86663; 86664; 86665

== ENCOUNTER → 2021-11-09 | Outpatient (CLI) | payer BC ==
--- NOTE | 2021-11-10 12:49 | CT ---
EXAMINATION TYPE: CT chest wo con, CT neck chest w con DATE OF EXAM: 11/09/2021 COMPARISON: Chest x-ray 11/27/2021 CT angiogram of the neck 10/08/2020, soft tissue neck 11/15/2018 HISTORY: SOB (accession [id number]), SOB, left sided neck swelling, dysphagia (accession [id number]) CT DLP: 474.3 (accession [id number]), 1031.2 (accession [id number]) mGycm. Automated Exposure Control fo r Dose Reduction was Utilized. TECHNIQUE: CT scan of the thorax is performed without and with IV contrast. Patient received 100 cc Isovue-300 IV, postcontrast images also obtained through the neck. FINDINGS: CT neck shows the skull base to be normal. The airway is patent. Calcifications along the p alatine tonsil consistent with chronic infection. Epiglottis shows a normal appearance, uvula within normal limits. Salivary glands show symmetric appearance. No evident adenopathy. Normal vascular enha ncement is present. Thyroid gland shows an unremarkable appearance. Level of the true and false cords is normal. Degenerative disc changes are present cervical spine. LUNGS: The lungs are grossly clear, there is no concerning parenchymal mass or nodule identified. T here is no pleural effusion or pneumothorax seen. The tracheobronchial tree is patent. MEDIASTINUM: Lack of IV contrast is noted to limit evaluation for mediastinal and especially hilar ad enopathy. There are no definitive greater than 1 cm hilar or mediastinal lymph nodes. No cardiomega ly or pericardial effusion is seen. OTHER: Upper abdomen within normal limits. IMPRESSION: No significant abnormality to account for patient's symptoms. There are degenerative disc changes in the cervical spine. No evident hiatal hernia.
== END | disposition home or self-care (01) ==
LOC: RADCTMAIN 17:52
PROVIDERS: ATTEND Otolaryngology
DX: D38.5 Neoplasm of uncertain behavior of other respiratory organs (principal); K11.1 Hypertrophy of salivary gland; D37.05 Neoplasm of uncertain behavior of pharynx; R22.1 Localized swelling, mass and lump, neck; R13.10 Dysphagia, unspecified; R06.00 Dyspnea, unspecified
CPT/HCPCS: 70491; 71260; Q9967; 71250

== ENCOUNTER 2022-06-29 06:17 | Day surgery (SDC) | payer BC ==
[2022-06-28 13:46] VITALS: BMI 36.5
[~2022-06-29 06:17] MED LIST changes: -DEXAMETHASONE SOD PHOSPHATE 10 MG/ML 1 ML VIAL IV ONE; +LIDOCAINE 1% (10MG/ML) FOR IV START INTRADERMA PRN; -MIDAZOLAM 2 MG/2 ML VIAL IV PRN; -ONDANSETRON 4 MG/2 ML VIAL IVP ONE; -SCOPOLAMINE 1.5MG/72HR PATCH TRANSDERM ONE; -ceFAZolin 3 GM in SODIUM CHLORIDE 0.9% 100 ML IVPB ONE
[2022-06-29] MEDS ORDERED: LACTATED RINGERS 1,000 ML IV ONE (06:40)
[2022-06-29 06:58] VITALS: TEMP 97
[2022-06-29] MEDS ORDERED: LIDOCAINE 2% INJ 20 MG/ML (2 ML VIAL) ONE (07:18)
[2022-06-29] MEDS ORDERED: PROPOFOL 10 MG/ML 20 ML VIAL IV ONE (07:18)
--- NOTE | 2022-06-29 07:43 | P.PCN ---
Date of Procedure: 06/29/22 Procedure(s) Performed: Brief history: Patient is a 51-year-old pleasant white female scheduled for an elective upper endoscopy as well as colonoscopy as a part of evaluation of and diffuse abdominal pain and change in bowel habits for the last several months duration. Pain is mostly in the right upper quadrant area patient in the right lower quadrant area radiating to the left upper quadrant area is almost constant with no aggravating or relieving factors. Occasionally has constipation. Recent CT of the abdomen and pelvis was unremarkable. Procedure performed: Esophagogastroduodenoscopy with biopsy Colonoscopy Preoperative diagnosis: Diffuse abdominal pain and change in bowel habits Anesthesia: MAC Procedure: After informed consent was obtained from the patient was brought into the endoscopy unit and IV sedation was administered by anesthesia under continuous monitoring. Initially upper endoscopy was done. The Olympus GF 160 video endoscope was inserted inserted into the mouth and esophagus intubated without any difficulty and was gradually advanced into the stomach and duodenum and carefully examined. The bulb and second part of the duodenum appeared normal. The scope was then withdrawn into the stomach adequately insufflated with air and upon careful examination the antrum had mild gastritis and biopsies were done from this area. Mucosa of the body, cardia and fundus appeared normal. The scope was then withdrawn into the esophagus. The GE junction was located at 40 cm to the incisors. It appeared regular with no erythema erosions or ulcerations. Abscesses were also done from the esophagus. Rest of the esophagus appeared normal. Patient tolerated the procedure well. At this time the patient continued to remain sedation. Initial digital rectal examination was normal. Olympus CF 160 video colonoscope was then inserted into the rectum and gradually advanced to the cecum without any difficulty. Careful examination was performed as the scope was gradually being withdrawn. The prep was excellent. The cecum, ascending colon, transverse colon, descending colon, sigmoid colon and rectum appeared normal. Retroflexion was performed in the rectum and no lesions were noted. Patient tolerated the procedure well. Impression: 1. Upper endoscopy revealed minimal antral gastritis but no evidence of esophagitis or peptic ulcer disease 2. Colonoscopy was within normal limits with no evidence of colorectal neoplasia Recommendations: Findings of this examination were discussed with the patient as well as her family. She was advised to follow with the biopsy results. Recommend repeat screening colonoscopy in 10 years.
[2022-06-29 07:49] VITALS: RESP 16
[2022-06-29 08:07] VITALS: BP 126/75; PULSE 80
== END 2022-06-29 08:17 | disposition home or self-care (01) ==
LOC: ORWHC2ENDO 06:17
PROVIDERS: ATTEND Internal Medicine Gastroenterology
DX: K29.50 Unspecified chronic gastritis without bleeding (principal); R19.4 Change in bowel habit; I25.10 Atherosclerotic heart disease of native coronary artery without angina pectoris; I10 Essential (primary) hypertension; E78.5 Hyperlipidemia, unspecified; Z79.899 Other long term (current) drug therapy; Z79.01 Long term (current) use of anticoagulants
CPT/HCPCS: 81025; 88305; 45378; 43239; J2704; J2001

== ENCOUNTER 2023-01-13 10:43 | Day surgery (SDC) | payer BC ==
[2023-01-11 17:14] VITALS: BMI 32.6
[~2023-01-13 10:43] MED LIST changes: +DEXAMETHASONE SOD PHOSPHATE 4 MG/ML 1 ML VIAL IV ONE; +FAMOTIDINE 20 MG/2 ML VIAL IV PRN; +HYDROmorphone 0.5 MG/0.5 ML SYRINGE IVP PRN; +ONDANSETRON 4 MG/2 ML VIAL IVP ONE; +droPERidol 5 MG/2 ML VIAL IVP ONE
[2023-01-13] MEDS ORDERED: LACTATED RINGERS 1,000 ML IV ONE (10:59)
[2023-01-13] MEDS ORDERED: LIDOCAINE 2% INJ 20 MG/ML (2 ML VIAL) ONE (13:04)
[2023-01-13] MEDS ORDERED: PROPOFOL 10 MG/ML 20 ML VIAL IV ONE (13:04)
[2023-01-13] MEDS ORDERED: MIDAZOLAM 2 MG/2 ML VIAL ONE (13:04)
[2023-01-13] MEDS ORDERED: fentaNYL (PF) 50 MCG/ML 2 ML AMP ONE (13:04)
[2023-01-13] MEDS ORDERED: CIPROFLOXACIN-DEXAMETH 0.3-0.1% DROPS 7.5 ML BTL LEFT EAR ONE (13:06)
[2023-01-13 13:39] VITALS: RESP 16; TEMP 97.5
--- NOTE | 2023-01-13 13:49 | P.OP ---
Date of Procedure: 01/13/23 Preoperative Diagnosis: Eustachian tube obstruction, cartilaginous, chronic serous otitis media left ear, conductive hearing loss Postoperative Diagnosis: same all Procedure(s) Performed: Left direct microscopic tympanostomy with T-Tube placement Anesthesia: MAC Surgeon: Saran Villalba Estimated Blood Loss (ml): 0 Pathology: none sent Condition: stable Disposition: PACU Indications for Procedure: Patient has had persistent problems with a left middle ear effusion and eustachian tube dysfunction and obstruction. Patient failed appropriate medical therapy. Patient requests tube placement. Operative Findings: Patient was found to have a left middle ear effusion Description of Procedure: Patient was taken to the operative room and placed in the supine position. IV sedation was administered and LMA in place in the left ear was visualized with a variable focus Zeiss microscope. Cerumen and epithelial debris was removed from the external auditory canal. Tympanostomy incision was made anteriorly and inferiorly fluid was suctioned and a T-tube was placed. Excellent placement was obtained. Ofloxacin drops were were demonstrated and the patient was taken to postanesthesia recovery in excellent condition. Patient is to call if any problems should arise.
[2023-01-13 14:49] VITALS: BP 108/70; PULSE 69
== END 2023-01-13 14:50 | disposition home or self-care (01) ==
LOC: OR 10:43
PROVIDERS: ATTEND Otolaryngology
DX: H65.22 Chronic serous otitis media, left ear (principal); H90.2 Conductive hearing loss, unspecified; I25.10 Atherosclerotic heart disease of native coronary artery without angina pectoris; I10 Essential (primary) hypertension; E78.5 Hyperlipidemia, unspecified; Z95.5 Presence of coronary angioplasty implant and graft; N39.0 Urinary tract infection, site not specified; Z79.82 Long term (current) use of aspirin; Z79.899 Other long term (current) drug therapy
CPT/HCPCS: 69436; J1100; J2405

== ENCOUNTER 2023-01-16 05:09 | Inpatient (IN) | payer BC ==
[2023-01-16 05:56] LABS: Basophils % (A) 0 %; Eosinophils # (A) 0.1 k/uL (0-0.7); Eosinophils % (A) 2 %; HCT 36.4 % (34.0-46.0); Lymphocytes # (A) 2.3 k/uL (1.0-4.8); Lymphocytes % (A) 47 %; MCH 29.2 pg (25.0-35.0); MCV 88.5 fL (80.0-100.0); Mean Platelet Volume 7.5; Monocytes # (A) 0.4 k/uL (0-1.0); Monocytes % (A) 8 %; Neutrophils % (A) 40 %; Platelet Count 251 k/uL (150-450); RBC 4.11 m/uL (3.80-5.40); RDW 12.9 % (11.5-15.5); WBC 4.9 k/uL (3.8-10.6)
[2023-01-16 06:06] LABS: ALT 20 U/L (4-34); AST 23 U/L (14-36); African American GFR (CKD) >90 (>60 ml/min/1.73 sqM); Albumin 3.8 g/dL (3.5-5.0); Alkaline Phosphatase 62 U/L (38-126); Anion Gap 8 mmol/L; Blood Urea Nitrogen 21 mg/dL (7-17); Carbon Dioxide 25 mmol/L (22-30); Chloride 108 mmol/L (98-107); Glucose 84 mg/dL (74-99); Non-African American GFR(CKD) >90 (>60 ml/min/1.73 sqM); Potassium 3.6 mmol/L (3.5-5.1); Sodium 141 mmol/L (137-145); Total Bilirubin 0.7 mg/dL (0.2-1.3); Total Protein 6.1 g/dL (6.3-8.2)
[2023-01-16 06:22] LABS: INR 1.1 (<1.2); Partial Thromboplastin Time 22.9 sec (22.0-30.0); Prothrombin Time 11.1 sec (9.0-12.0)
[2023-01-16] MEDS ORDERED: NITROGLYCERIN OINT 1 INCH/GM PACKET TOPICAL STA (06:34)
[2023-01-16] MEDS ORDERED: ASPIRIN 81 MG PO STA (06:34)
--- NOTE | 2023-01-16 06:34 | ED ---
Chest Pain HPI - General Chief Complaint: Chest Pain Stated Complaint: Chest pain, SOB Time Seen by Provider: 01/16/23 06:07 Source: patient, RN notes reviewed Mode of arrival: wheelchair Limitations: no limitations - History of Present Illness Initial Comments: Patient is a pleasant 52-year-old female presenting to the emergency room from home with complaints of chest pain midsternal pressure-like with associated shortness of breath, generalized malaise, headache and diaphoresis. Her symptoms are worse with activity. She reports that her symptoms began on Tuesday however she thought she was possibly coming down with a bug or dehydrated consequently she rested and drink plenty of fluids however when her pain woke her out of a sleep earlier this morning she presented to the emergency room. She had a stent placed to her LAD in February of last year at [facility]; She was evaluated by local cms expert at [facility] and reports that she was advised that she had 60% occlusion in her LAD and consequently later went to emergency room at [facility] due to continued chest pain symptoms repeat cardiac catheterization revealed 90% occlusion to her LAD that she underwent PCI stenting to. She has been on Brillinta and a baby aspirin since she had her stent placed but unfortunately last week she needed surgery of her left ear and was taken off of all her anticoagulant/antiplatelet including aspirin and brillinta. She still has not resume these medications. She states that she contacted her cms expert regarding her symptoms but has not received a call back from the on-call cms expert. She also notes some episodes of transient tachycardia and hypotension though she is not having any at this time. In addition to her known CAD she has a past medical history significant for hypertension and hyperlipidemia. She denies any shortness of breath at rest. She does continue to have chest pain and a headache. She reports some generalized malaise. She denies any abdominal pain, nausea, vomiting, lower extremity edema, fevers or chills. - Related Data Home Medications Medication Instructions Recorded Confirmed Aspirin [Adult Low Dose Aspirin EC] 81 mg PO DAILY 06/28/22 01/16/23 Losartan [Cozaar] 25 mg PO DAILY 06/29/22 01/16/23 Atorvastatin [Lipitor] 80 mg PO HS 01/11/23 01/16/23 Metoprolol Succinate (ER) [Toprol 25 mg PO DAILY 01/11/23 01/16/23 Xl] Ticagrelor [Brilinta] 90 mg PO DAILY 01/11/23 01/16/23 Ciprofloxacin HCl [Cipro] 500 mg PO Q12HR 01/16/23 01/16/23 Fluticasone Furoate [Flonase 1 - 2 spray NASAL HS 01/16/23 01/16/23 Sensimist] Linaclotide [Linzess] 145 mcg PO DAILY 01/16/23 01/16/23 Multivitamins, Thera [Multivitamin 1 tab PO DAILY 01/16/23 01/16/23 (formulary)] hydroCHLOROthiazide [Hydrodiuril] 25 mg PO DAILY PRN 01/16/23 01/16/23 Previous Rx's Medication Instructions Recorded Ofloxacin 0.3% Ophth Soln [Ocuflox 5 drops LEFT EAR BID 5 Days #10 ml 01/13/23 Ophth Soln] Allergies Allergy/AdvReac Type Severity Reaction Status Date / Time No Known Allergies Allergy Verified 01/16/23 11:34 Review of Systems ROS Statement: Those systems with pertinent positive or pertinent negative responses have been documented in the HPI. ROS Other: All systems not noted in ROS Statement are negative. Past Medical History Past Medical History: Coronary Artery Disease (CAD), Chest Pain / Angina, Hyperlipidemia, Hypertension Additional Past Medical History / Comment(s): pt states dark stools History of Any Multi-Drug Resistant Organisms: None Reported Past Surgical History: Ear Surgery, Heart Catheterization With Stent Additional Past Surgical History / Comment(s): achilles tendon repair on lt, rt knee arthroscopy, rt shoulder sx. Past Anesthesia/Blood Transfusion Reactions: No Reported Reaction Date of Last Stent Placement:: February 2022 Jacob Farrell Past Psychological History: No Psychological Hx Reported Smoking Status: Never smoker Past Alcohol Use History: Occasional Past Drug Use History: None Reported - Past Family History Father Family Medical History: Hypertension Mother Family Medical History: Cancer, Thyroid Disorder Additional Family Medical History / Comment(s): stage 4 ovarian cancer. hx manic depressive General Exam Limitations: no limitations General appearance: alert, in no apparent distress Head exam: Present: atraumatic, normocephalic, normal inspection Eye exam: Present: normal appearance, PERRL, EOMI. Absent: scleral icterus, conjunctival injection, periorbital swelling ENT exam: Present: normal oropharynx, mucous membranes moist, normal external ear exam Neck exam: Present: full ROM, other (Mild soft tissue swelling left lateral neck chronic) Respiratory exam: Present: normal lung sounds bilaterally. Absent: respiratory distress, wheezes, rales, rhonchi, stridor Cardiovascular Exam: Present: regular rate, normal rhythm, normal heart sounds. Absent: systolic murmur, diastolic murmur, rubs, gallop, clicks GI/Abdominal exam: Present: soft, normal bowel sounds. Absent: distended, tenderness, guarding, rebound, rigid Extremities exam: Present: normal inspection. Absent: pedal edema, joint swelling Back exam: Present: normal inspection, full ROM Neurological exam: Present: alert, oriented X3, CN II-XII intact Psychiatric exam: Present: normal affect, normal mood Skin exam: Present: warm, dry, intact, normal color. Absent: rash Course Vital Signs 01/16/23 01/16/23 01/16/23 05:12 05:30 05:32 Temperature 98.2 F Pulse Rate 71 Pulse Rate [ 62 Bilateral Sitting Radial] Respiratory 18 18 Rate Blood Pressure 139/89 O2 Sat by Pulse 98 Oximetry 01/16/23 01/16/23 01/16/23 05:33 05:34 06:00 Temperature Pulse Rate 62 62 60 Pulse Rate [ Bilateral Sitting Radial] Respiratory 18 17 16 Rate Blood Pressure 129/83 129/83 125/79 O2 Sat by Pulse 97 96 Oximetry 01/16/23 01/16/23 01/16/23 06:30 07:00 07:30 Temperature Pulse Rate 65 68 70 Pulse Rate [ Bilateral Sitting Radial] Respiratory 16 20 18 Rate Blood Pressure 147/101 145/80 126/75 O2 Sat by Pulse Oximetry 01/16/23 09:16 Temperature 98.7 F Pulse Rate 65 Pulse Rate [ Bilateral Sitting Radial] Respiratory 18 Rate Blood Pressure 106/73 O2 Sat by Pulse 97 Oximetry Chest Pain MDM - MDM Was pt. sent in by a medical professional or institution (, PA, PUBLICATION SPECIALIST, urgent care, hospital, or retirement...) When possible be specific @ -No Did you speak to anyone other than the patient for history (EMS, parent, family, police, friend...)? What history was obtained from this source @ -No Did you review nursing and triage notes (agree or disagree)? Why? @ -I reviewed and agree with nursing and triage notes Were old charts reviewed (outside hosp., previous admission, EMS record, old EKG, old radiological studies, urgent care reports/EKG's, retirement records)? Report findings @ -Yes, reviewed most recent EKG on file from 10/26/2021. Differential Diagnosis (chest pain, altered mental status, abdominal pain women, abdominal pain men, vaginal bleeding, weakness, fever, dyspnea, syncope, headache, dizziness, GI bleed, back pain, seizure, CVA, palpatations, mental health, musculoskeletal)? @ -Differential Chest Pain: Stable Angina, Unstable Angina, STEMI, NSTEMI Aortic Dissection, Pneumothorax, Musculoskeletal, Esophageal Spasm GERD, Cholecystitis, Pancreatitis, Zoster, this is not meant to be an all-inclusive list. EKG interpreted by me (3pts min.). @ -Sinus rhythm, ventricular rate 62 bpm, UT interval 154 ms, QRS duration 94 ms, QT/QTC 385/391 ms, PRT axes 53, 60, 41 X-rays interpreted by me (1pt min.). @ -Chest x-ray two-view: No infiltrate, pleural effusion, pneumothorax or cardiomegaly. No acute cardiopulmonary process. CT interpreted by me (1pt min.). @ -None done U/S interpreted by me (1pt. min.). @ -None done What testing was considered but not performed or refused? (CT, X-rays, U/S, labs)? Why? @ -None What meds were considered but not given or refused? Why? @ -Morphine considered for chest pain but held due to improvement in chest pain with aspirin and Nitropaste. Did you discuss the management of the patient with other professionals (professionals i.e. , PA, PUBLICATION SPECIALIST, lab, RT, psych nurse, social studies department chair, tennis desk team member, teacher, donor relations officer, community case manager)? Give summary @ -Yes, spoke with Dr. Chang tour production supervisor for the [facility] regarding patient's pre sentation past cardiovascular history and recommendation of admission for monitoring and cardiac evaluation; she is accepting of admission and denies any further orders at this time. Was smoking cessation discussed for >3mins.? @ -No Was critical care preformed (if so, how long)? @ -No Were there social determinants of health that impacted care today? How? (Homelessness, low income, unemployed, alcoholism, drug addiction, transportation, low edu. Level, literacy, decrease access to med. care, snf, re hab)? @ -No Was there de-escalation of care discussed even if they declined (Discuss DNR or withdrawal of care, Hospice)? DNR status @ -No What co-morbidities impacted this encounter? (DM, HTN, Smoking, COPD, CAD, Cancer, CVA, ARF, Chemo, Hep., AIDS, mental health diagnosis, sleep apnea, morbid obesity)? @ -CAD Was patient admitted / discharged? Hospital course, mention meds given and route, prescriptions, significant lab abnormalities, going to OR and other pertinent info. @ -52-year-old female presenting to the emergency room with complaints of chest pain with associated shortness of breath, headache and diaphoresis which woke her up early this morning. She reports concern due to symptoms being similar to her previous symptoms prior to stenting of her LAD. Patient with known CAD with recent holding of antiplatelets due to recent ENT surgery. Will start workup for chest pain with EKG, chest x-ray, CBC, CMP, magnesium, troponin and coags. Will give 325 mg of aspirin along with 1 inch of Nitropaste. Will hold morphine at this time will have 2 L nasal cannula applied as well. Improvement in chest pain with Nitropaste and aspirin EKG shows sinus rhythm. Chest x-ray without any acute cardiopulmonary process. CBC without abnormalities. Coags normal. CMP demonstrates elevated chloride 108 limited BUN at 21 normal creatinine. Normal electrolytes including normal potassium and magnesium. Normal liver enzymes. Troponin negative. Advised patient of testing results and recommendation of observation admission for continued monitoring and further evaluation by cardiology. She is agreeable to this plan. Spoke with Dr. Chang regarding patient's presentation and recommendation for observation admission with consult to cardiology. She is accepting of consult denies any further orders at this time. Will admit patient in stable condition to observation unit under [facility] services for further evaluation and treatment of chest pain. Undiagnosed new problem with uncertain prognosis? @ -No Drug Therapy requiring intensive monitoring for toxicity (Heparin, Nitro, Insulin, Cardizem)? @ -No Were any procedures done? @ -No Diagnosis/symptom? @ -Chest pain Acute, or Chronic, or Acute on Chronic? @ -Acute Uncomplicated (without systemic symptoms) or Complicated (systemic symptoms)? @ -Complicated Side effects of treatment? @ -No Exacerbation, Progression, or Severe Exacerbation? @ -No Poses a threat to life or bodily function? How? (Chest pain, [place], [place], pneumonia, PE, COPD, DKA, ARF, appy, cholecystitis, CVA, Diverticulitis, Homicidal, Suicidal, threat to staff... and all critical care pts) @ -Yes, chest pain with risk for myocardial infarction and cardiac arrest. Case discussed with Dr. Hernandez. Disposition Clinical Impression: Chest pain Disposition: ADMITTED IP TO THIS HOSP Condition: Stable Time of Disposition: 07:42
--- NOTE | 2023-01-16 08:11 | XR ---
EXAMINATION TYPE: XR chest 2V DATE OF EXAM: 01/16/2023 COMPARISON: 10/27/2021 HISTORY: 52-year-old female with chest pain TECHNIQUE: PA and lateral views FINDINGS: Heart normal size. Aorta and pulmonary vascularity within normal limits. No consolidation or pleural effusion. IMPRESSION: No acute cardiopulmonary process.
[2023-01-16] MEDS ORDERED: NALOXONE 0.4 MG/ML 1 ML VIAL IV PRN (08:12)
--- NOTE | 2023-01-16 09:58 | P.CRDCN ---
History of Present Illness History of present illness: HISTORY OF PRESENTING ILLNESS Patient is a pleasant 52-year-old female with history of hypertension, hyperlipidemia, CAD status post PCI of LAD, ear fullness status post left ear tube who presents secondary episode of chest pain, lightheadedness, palpitations. Patient had prior workup approximate year ago back in February where she was having mainly left jaw and ear pain and some atypical chest pain. She eventually underwent heart catheterization at [facility] with finding of intermediate LAD lesion 50-60%. Initially this was attempted to be treated medically however had more symptoms and eventually ended up [facility] hospital and lesion appeared more significant and underwent stenting of the mid LAD lesion in February. She apparently has been followed with a Dr. Hughes and has done relatively well since. She is normally on metoprolol and losartan. She was being evaluated for ear tube placement secondary to decreased hearing on her left side and some congestion with prior GERD tube failed. Therefore she had stopped her Brilinta 5 days ago and eventually underwent tube placement. Approximately a week ago however she had an episode where she felt her heart racing when she was at work and had lightheadedness and on her apple watch noted to be heart rate 219 with narrow complex SVT, no clear evidence of A. fib. Symptoms eventually resolved and she did not go to the ER. She has not quite felt well since then. Eventually she had an episode this morning at 3 AM where she was feeling lightheaded, nauseous, chest pain radiating to her left arm and therefore came to emergency department. She has not been taking metoprolol secondary to blood pressure being on the lower end in the 80s and 90s area she denies any cough, fevers, chills. REVIEW OF SYSTEMS At the time of my exam: CONSTITUTIONAL: Denies fever or chills. CARDIOVASCULAR: +chest pain, +shortness of breath, no orthopnea, PND +palpitations. RESPIRATORY: Denies cough. GASTROINTESTINAL: Denies abdominal pain, diarrhea, constipation, +nausea no vomiting. MUSCULOSKELETAL: Denies myalgias. NEUROLOGIC: Denies numbness, tingling or weakness. ENDOCRINE: Denies fatigue, weight change, polydipsia or polyurina. GENITOURINARY: Denies burning, hematuria or urgency with micturation. HEMATOLOGIC: Denies history of anemia or bleeding. PHYSICAL EXAMINATION Vital signs reviewed. CONSTITUTIONAL: No apparent distress. HEENT: Head is normocephalic. Pupils are equal, round. Sclerae anicteric. Mucous membranes of the mouth are moist. No JVD. No carotid bruit. CHEST EXAMINATION: Lungs are clear to auscultation. No chest wall tenderness is noted on palpation or with deep breathing. HEART EXAMINATION: Regular rate and rhythm. S1, S2 heard. No murmurs, gallops or rub. ABDOMEN: Soft, nontender. Positive bowel sounds. EXTREMITIES: 2+ peripheral pulses, no lower extremity edema and no calf tenderness. NEUROLOGIC EXAMINATION: Patient is awake, alert and oriented x3. ASSESSMENT 1. Atypical chest pain 2. CAD with prior PCI LAD 02/26 3. Palpitations with apple watch showing narrow complex SVT heart rates in the 200s, no clear evidence of A. fib 4. Slurring of words during SVT episode one week ago, likely more related to hypotension 5. Intermittent hypotension at home blood pressures in the 80s 6. Nausea, fatigue, shortness breath 7. Ear fullness, recent tube placement PLAN Patient having a number of symptoms. She does have stenting from February however unclear if she actually had significant angina-type symptoms. Has been undergoing workup for ENT with ear fullness and tube placement and does not appear anginal symptoms. New symptoms of chest pain and not feeling well and we will check Cardilate stress test with primary flight software test engineer having scheduled stress test for tomorrow anyways. Additionally check echo to have a left ventricular function. Additionally check d-dimer and if abnormal check CT, PE protocol. Finally patient had episode of arrhythmia with tachycardia heart rates in the 200 one week ago and some slurred words. Recommend outpatient 30 day event monitor. Past Medical History Past Medical History: Coronary Artery Disease (CAD), Chest Pain / Angina, Hyperlipidemia, Hypertension Additional Past Medical History / Comment(s): pt states dark stools History of Any Multi-Drug Resistant Organisms: None Reported Past Surgical History: Heart Catheterization With Stent Additional Past Surgical History / Comment(s): achilles tendon repair on lt, rt knee arthroscopy, rt shoulder sx. Past Anesthesia/Blood Transfusion Reactions: No Reported Reaction Date of Last Stent Placement:: February 2022 Jacob Farrell Past Psychological History: No Psychological Hx Reported Smoking Status: Never smoker Past Alcohol Use History: Occasional Past Drug Use History: None Reported - Past Family History Father Family Medical History: Hypertension Mother Family Medical History: Cancer, Thyroid Disorder Additional Family Medical History / Comment(s): stage 4 ovarian cancer. hx manic depressive Medications and Allergies Home Medications Medication Instructions Recorded Confirmed Type Aspirin [Adult Low Dose Aspirin EC] 81 mg PO DAILY 06/28/22 01/11/23 History Losartan [Cozaar] 25 mg PO DAILY 06/29/22 01/11/23 History Atorvastatin [Lipitor] 80 mg PO HS 01/11/23 01/11/23 History Metoprolol Succinate (ER) [Toprol 25 mg PO DAILY 01/11/23 01/11/23 History Xl] Ticagrelor [Brilinta] 90 mg PO DAILY 01/11/23 01/11/23 History Ofloxacin 0.3% Ophth Soln [Ocuflox 5 drops LEFT EAR BID 5 Days #10 ml 01/13/23 Rx Ophth Soln] Allergies Allergy/AdvReac Type Severity Reaction Status Date / Time No Known Allergies Allergy Verified 01/16/23 05:12 Physical Exam Vitals: Vital Signs Temp Pulse Pulse Resp BP Pulse Ox 01/16/23 09:16 98.7 F 65 18 106/73 97 01/16/23 07:30 70 18 126/75 01/16/23 07:00 68 20 145/80 01/16/23 06:30 65 16 147/101 01/16/23 06:00 60 16 125/79 01/16/23 05:34 62 17 129/83 96 01/16/23 05:33 62 18 129/83 97 01/16/23 05:32 18 01/16/23 05:30 62 01/16/23 05:12 98.2 F 71 18 139/89 98 Intake and Output 01/15/23 01/16/23 01/16/23 22:59 06:59 14:59 Other: Weight 98.43 kg Results 01/16/23 05:45 01/16/23 05:45 Cardiac Enzymes 01/16/23 01/16/23 Range/Units 05:45 05:45 AST 23 (14-36) U/L Troponin I <0.012 (0.000-0.034) ng/mL Coagulation 01/16/23 Range/Units 05:45 PT 11.1 (9.0-12.0) sec APTT 22.9 (22.0-30.0) sec CBC 01/16/23 Range/Units 05:45 WBC 4.9 (3.8-10.6) k/uL RBC 4.11 (3.80-5.40) m/uL Hgb 12.0 (11.4-16.0) gm/dL Hct 36.4 (34.0-46.0) % Plt Count 251 (150-450) k/uL Comprehensive Metabolic Panel 01/16/23 Range/Units 05:45 Sodium 141 (137-145) mmol/L Potassium 3.6 (3.5-5.1) mmol/L Chloride 108 H (98-107) mmol/L Carbon Dioxide 25 (22-30) mmol/L BUN 21 H (7-17) mg/dL Creatinine 0.57 (0.52-1.04) mg/dL Glucose 84 (74-99) mg/dL Calcium 9.0 (8.4-10.2) mg/dL AST 23 (14-36) U/L ALT 20 (4-34) U/L Alkaline Phosphatase 62 (38-126) U/L Total Protein 6.1 L (6.3-8.2) g/dL Albumin 3.8 (3.5-5.0) g/dL Current Medications Generic Name Dose Route Start Last Admin Trade Name Freq PRN Reason Stop Dose Admin Naloxone HCl 0.2 mg 01/16/23 08:12 Naloxone 0.4 Mg/Ml 1 Ml Vial IV Q2M PRN Opioid Reversal Intake and Output 01/15/23 01/16/23 01/16/23 22:59 06:59 14:59 Other: Weight 98.43 kg 01/16/23 05:45 01/16/23 05:45
--- NOTE | 2023-01-16 16:20 | P.HPIM ---
History of Present Illness H&P Date: 01/16/23 Chief Complaint: Chest pain 52-year-old female presenting to the emergency room from home with complaints of chest pain midsternal pressure-like with associated shortness of breath, generalized malaise, headache and diaphoresis. Her symptoms are worse with activity. She reports that her symptoms began on Tuesday however she thought she was possibly coming down with a bug or dehydrated consequently she rested and drink plenty of fluids however when her pain woke her out of a sleep earlier this morning she presented to the emergency room. She had a stent placed to her LAD in February of last year at [facility]; She was evaluated by local chemical operations specialist at [facility] and reports that she was advised that she had 60% occlusion in her LAD and consequently later went to emergency room at [facility] due to continued chest pain symptoms repeat cardiac catheterization revealed 90% occlusion to her LAD that she underwent PCI stenting to. She has been on Brillinta and a baby aspirin since she had her stent placed but unf ortunately last week she needed surgery of her left ear and was taken off of all her anticoagulant/antiplatelet including aspirin and brillinta. She still has not resume these medications. She states that she contacted her chemical operations specialist regarding her symptoms but has not received a call back from the on-call chemical operations specialist. She also notes some episodes of transient tachycardia and hypotension though she is not having any at this time. In addition to her known CAD she has a past medical history significant for hypertension and hyperlipidemia. She denies any shortness of breath at rest. She does continue to have chest pain and a headache. She reports some generalized malaise. She denies any abdominal pain, nausea, vomiting, lower extremity edema, fevers or chills. Review of Systems REVIEW OF SYSTEMS: CONSTITUTIONAL: No fever, no malaise, no fatigue. HEENT: No recent visual problems or hearing problems. Denied any sore throat. CARDIOVASCULAR: No chest pain, orthopnea, PND, no palpitations, no syncope. PULMONARY: No shortness of breath, no cough, no hemoptysis. GASTROINTESTINAL: No diarrhea, no nausea, no vomiting, no abdominal pain. NEUROLOGICAL: No headaches, no weakness, no numbness. HEMATOLOGICAL: Denies any bleeding or petechiae. GENITOURINARY: Denies any burning micturition, frequency, or urgency. MUSCULOSKELETAL/RHEUMATOLOGICAL: Denies any joint pain, swelling, or any muscle pain. ENDOCRINE: Denies any polyuria or polydipsia. The rest of the 14-point review of systems is negative. Past Medical History Past Medical History: Coronary Artery Disease (CAD), Chest Pain / Angina, Hyperlipidemia, Hypertension Additional Past Medical History / Comment(s): pt states dark stools History of Any Multi-Drug Resistant Organisms: None Reported Past Surgical History: Heart Catheterization With Stent Additional Past Surgical History / Comment(s): achilles tendon repair on lt, rt knee arthroscopy, rt shoulder sx. Past Anesthesia/Blood Transfusion Reactions: No Reported Reaction Date of Last Stent Placement:: February 2022 Jacob Farrell Past Psychological History: No Psychological Hx Reported Smoking Status: Never smoker Past Alcohol Use History: Occasional Past Drug Use History: None Reported - Past Family History Father Family Medical History: Hypertension Mother Family Medical History: Cancer, Thyroid Disorder Additional Family Medical History / Comment(s): stage 4 ovarian cancer. hx manic depressive Medications and Allergies Home Medications Medication Instructions Recorded Confirmed Type Aspirin [Adult Low Dose Aspirin EC] 81 mg PO DAILY 06/28/22 01/16/23 History Losartan [Cozaar] 25 mg PO DAILY 06/29/22 01/16/23 History Atorvastatin [Lipitor] 80 mg PO HS 01/11/23 01/16/23 History Metoprolol Succinate (ER) [Toprol 25 mg PO DAILY 01/11/23 01/16/23 History Xl] Ticagrelor [Brilinta] 90 mg PO DAILY 01/11/23 01/16/23 History Ofloxacin 0.3% Ophth Soln [Ocuflox 5 drops LEFT EAR BID 5 Days #10 ml 01/13/23 01/16/23 Rx Ophth Soln] Ciprofloxacin HCl [Cipro] 500 mg PO Q12HR 01/16/23 01/16/23 History Fluticasone Furoate [Flonase 1 - 2 spray NASAL HS 01/16/23 01/16/23 History Sensimist] Linaclotide [Linzess] 145 mcg PO DAILY 01/16/23 01/16/23 History Multivitamins, Thera [Multivitamin 1 tab PO DAILY 01/16/23 01/16/23 History (formulary)] hydroCHLOROthiazide [Hydrodiuril] 25 mg PO DAILY PRN 01/16/23 01/16/23 History Allergies Allergy/AdvReac Type Severity Reaction Status Date / Time No Known Allergies Allergy Verified 01/16/23 11:34 Physical Exam Vitals: Vital Signs Temp Pulse Pulse Resp BP Pulse Ox 01/16/23 09:16 98.7 F 65 18 106/73 97 01/16/23 07:30 70 18 126/75 01/16/23 07:00 68 20 145/80 01/16/23 06:30 65 16 147/101 01/16/23 06:00 60 16 125/79 01/16/23 05:34 62 17 129/83 96 01/16/23 05:33 62 18 129/83 97 01/16/23 05:32 18 01/16/23 05:30 62 01/16/23 05:12 98.2 F 71 18 139/89 98 Intake and Output 01/15/23 01/16/23 01/16/23 22:59 06:59 14:59 Other: Weight 98.43 kg CONSTITUTIONAL: No apparent distress. HEENT: Head is normocephalic. Pupils are equal, round. Sclerae anicteric. Mucous membranes of the mouth are moist. No JVD. No carotid bruit. CHEST EXAMINATION: Lungs are clear to auscultation. No chest wall tenderness is noted on palpation or with deep breathing. HEART EXAMINATION: Regular rate and rhythm. S1, S2 heard. No murmurs, gallops or rub. ABDOMEN: Soft, nontender. Positive bowel sounds. EXTREMITIES: 2+ peripheral pulses, no lower extremity edema and no calf tenderness. NEUROLOGIC EXAMINATION: Patient is awake, alert and oriented x3. Results CBC & Chem 7: 01/16/23 05:45 01/16/23 05:45 Labs: Abnormal Lab Results - Last 24 Hours (Table) 01/16/23 Range/Units 05:45 Chloride 108 H (98-107) mmol/L BUN 21 H (7-17) mg/dL Total Protein 6.1 L (6.3-8.2) g/dL Assessment and Plan Assessment: 1. Chest pain rule out acute coronary syndrome - Patient has history of coronary artery disease with prior PCI to LAD in February 2022 - Patient is currently on aspirin, statins and beta blockers along with breathing to 90 mg daily - We will monitor EKG and trend troponin - Consult cardiology for further recommendations 2. Palpitations associated with SVT; cardiology recommending outpatient event monitor 3. Slurred speech with hypotension . Episodes of SVT; likely a combination of SVT and hypotension 4. Hyperlipidemia; Lipitor 80 mg by mouth daily at bedtime 5. Hypertension; patient takes Cozaar 25 mg daily; metoprolol 25 mg daily DVT prophylaxis; SCDs CODE STATUS; full code
[2023-01-16] MEDS ORDERED: hydroCHLOROthiazide 25 MG TAB PO PRN (16:27)
[2023-01-16] MEDS ORDERED: TICAGRELOR 90 MG TAB PO SCH (16:30)
[2023-01-16] MEDS: ACETAMINOPHEN TAB 325 MG TAB PO PRN ×2 (17:55→23:00)
[2023-01-16] MEDS: NITROGLYCERIN OINT 1 INCH/GM PACKET TOPICAL SCH ×2 (17:56→23:00)
[2023-01-16] MEDS: TICAGRELOR 90 MG TAB PO SCH (21:05)
[2023-01-16] MEDS: ATORVASTATIN 80 MG TAB PO SCH (21:06)
[2023-01-16] MEDS: FLUTICASONE 50MCG/SPRAY NASAL 16GM NASAL SCH (21:06)
[2023-01-17] MEDS: ACETAMINOPHEN TAB 325 MG TAB PO PRN ×2 (06:21→12:25)
[2023-01-17] MEDS: NITROGLYCERIN OINT 1 INCH/GM PACKET TOPICAL SCH ×3 (06:21→17:28)
[2023-01-17 06:59] LABS: African American GFR (CKD) >90 (>60 ml/min/1.73 sqM); Anion Gap 7 mmol/L; Blood Urea Nitrogen 13 mg/dL (7-17); Calcium 8.9 mg/dL (8.4-10.2); Carbon Dioxide 28 mmol/L (22-30); Chloride 106 mmol/L (98-107); Glucose 91 mg/dL (74-99); Non-African American GFR(CKD) >90 (>60 ml/min/1.73 sqM); Potassium 3.9 mmol/L (3.5-5.1); Sodium 141 mmol/L (137-145)
[2023-01-17] MEDS ORDERED: HEPARIN SODIUM,PORCINE 2,500 UNIT in SODIUM CHLORIDE 0.9% 250 ML IRRIGATION PRN (07:00)
[2023-01-17] MEDS ORDERED: HEPARIN SODIUM,PORCINE 10,000 UNIT in SODIUM CHLORIDE 0.9% 1,000 ML IRRIGATION PRN (07:00)
[2023-01-17] MEDS ORDERED: ONDANSETRON 4 MG/2 ML VIAL IVP PRN (08:13)
[2023-01-17] MEDS: ASPIRIN 81 MG PO SCH (08:23)
[2023-01-17] MEDS: TICAGRELOR 90 MG TAB PO SCH ×2 (08:24→20:38)
[2023-01-17] MEDS: NON FORMULARY DRUG (Linaclotide [Linzess] 145 MCG Capsule) PO SCH (08:28)
--- NOTE | 2023-01-17 09:43 | P.PN ---
Subjective Progress Note Date: 01/17/23 HISTORY OF PRESENTING ILLNESS Patient is a pleasant 52-year-old female with history of hypertension, hyper lipidemia, CAD status post PCI of LAD, ear fullness status post left ear tube who presents secondary episode of chest pain, lightheadedness, palpitations. Patient had prior workup approximate year ago back in February where she was having mainly left jaw and ear pain and some atypical chest pain. She eventually underwent heart catheterization at [facility] with finding of intermediate LAD lesion 50-60%. Initially this was attempted to be treated medically however had more symptoms and eventually ended up 104 hospital and lesion appeared more significant and underwent stenting of the mid LAD lesion in February. She apparently has been followed with a Dr. Hughes and has done relatively well since. She is normally on metoprolol and losartan. She was being evaluated for ear tube placement secondary to decreased hearing on her left side and some congestion with prior GERD tube failed. Therefore she had stopped her Brilinta 5 days ago and eventually underwent tube placement. Approximately a week ago however she had an episode where she felt her heart racing when she was at work and had lightheadedness and on her apple watch noted to be heart rate 219 with narrow complex SVT, no clear evidence of A. fib. Symptoms eventually resolved and she did not go to the ER. She has not quite felt well since then. Eventually she had an episode this morning at 3 AM where she was feeling lightheaded, nauseous, chest pain radiating to her left arm and therefore came to emergency department. She has not been taking metoprolol secondary to blood pressure being on the lower end in the 80s and 90s area she denies any cough, fevers, chills. 01/17 Patient is seen today in follow-up. She states she is still having some nausea and dizziness. She states she has had dizziness for the past week. Patient is scheduled for Cardiolite stress test this morning as well as echocardiogram. She has been maintained on her home cardiac medications. Patient's heart rate has been in the 60s, blood pressure 115/77, pulse ox 97% on room air. Repeat blood work this morning reveals normal electrolytes, BUN 13 creatinine 0.65. TSH was 1.04. Telemetry is a sinus rhythm. PHYSICAL EXAMINATION Vital signs reviewed. CONSTITUTIONAL: No apparent distress. HEENT: Head is normocephalic. Pupils are equal, round. Sclerae anicteric. Mucous membranes of the mouth are moist. No JVD. No carotid bruit. CHEST EXAMINATION: Lungs are clear to auscultation. No chest wall tenderness is noted on palpation or with deep breathing. HEART EXAMINATION: Regular rate and rhythm. S1, S2 heard. No murmurs, gallops or rub. ABDOMEN: Soft, nontender. Positive bowel sounds. EXTREMITIES: 2+ peripheral pulses, no lower extremity edema and no calf tenderness. NEUROLOGIC EXAMINATION: Patient is awake, alert and oriented x3. ASSESSMENT 1. Atypical chest pain 2. CAD with prior PCI LAD 02/26 3. Palpitations with apple watch showing narrow complex SVT heart rates in the 200s, no clear evidence of A. fib 4. Slurring of words during SVT episode one week ago, likely more related to hypotension 5. Intermittent hypotension at home blood pressures in the 80s 6. Nausea, fatigue, shortness breath 7. Ear fullness, recent tube placement 8. Dizziness 1 week PLAN Patient having a number of symptoms. She does have stenting from February however unclear if she actually had significant angina-type symptoms. She has been undergoing workup for ENT with ear fullness and tube placement and does not appear anginal symptoms. 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 Additionally check echo to have a left ventricular function. Additionally check d-dimer and if abnormal check CT, PE protocol. Finally patient had episode of arrhythmia with tachycardia heart rates in the 200 one week ago and some slurred words. Recommend outpatient 30 day event monitor. Nurse practitioner note has been reviewed, I agree with the documented findings and plan of care. Patient was seen and examined. Objective - Vital Signs Vital signs: Vital Signs Temp 97.8 F 01/17/23 02:00 Pulse 64 01/17/23 02:00 Resp 16 01/17/23 02:00 BP 127/73 01/17/23 02:00 Pulse Ox 98 01/17/23 02:00 FiO2 Intake & Output 01/16/23 01/17/23 01/17/23 18:59 06:59 18:59 Intake Total 442 0 Balance 442 0 Weight 98.43 kg Intake: Oral 442 0 Other: Voiding Method Toilet # Voids 3 2 - Labs CBC & Chem 7: 01/16/23 05:45 01/17/23 06:14
[2023-01-17] MEDS: LOSARTAN 25 MG TAB PO SCH (10:25)
[2023-01-17] MEDS: METOPROLOL SUCCINATE (ER) 25 MG TAB.ER.24H PO SCH (10:38)
[2023-01-17] MEDS: MULTIVITAMINS, THERA 1 EACH TAB PO SCH (10:38)
--- NOTE | 2023-01-17 11:45 | NM ---
EXAMINATION TYPE: NM stress cardiolite complete DATE OF EXAM: 01/17/2023 COMPARISON: NONE CLINICAL INDICATION: Female, 52 years old with history of CP; TECHNIQUE: After the intravenous administration of 10.6 mCi Tc 99m Sestamibi - Rest images obtained 45 minutes post injection. The patient exercised using a SUBHASH protocol and 1 minute prior to peak exercise was injected with 24.6 mCi Tc 99m Sestamibi - Stress images obtained 10 minutes post injecti on. FINDINGS: Targeted heart rate was achieved during performance of the study. Review of stress and rest SPECT samuel ges demonstrates question of a small area of stress-induced reversibility involving the inferior wall . Gated analysis shows normal wall motion with an estimated left ventricular ejection fraction of 61 %. IMPRESSION: Cannot exclude a small area of stress-induced reversible ischemia involving the inferior wall.
--- NOTE | 2023-01-17 11:47 | CA ---
Exercise Nuclear Stress Test Report Name: So Torrez Exam Date: 01/17/2023 08:50 Exam Location: [facility] Ht (in): 68 Wt (lb): 217 BSA: 2.12 Ordering Phys: Darren Marks DO Referring Phys: SERGIO, Technologist: Akhil Richey Age: 52 Gender: F : 1970 Procedure CPT: Indications: Reflex order-Stress test ICD-10 Codes: Patient History: Medications: SEE CHART Meds past 24 hrs: Pretest Chest Pain: STRESS TEST Adam Protocol Exercise Duration (min:sec): 08:[address] Depressions (mm): Angina Score: Villanueva Score: Resting HR (bpm): 76 Peak HR (bpm): 147 Resting BP (mmHg): 137 / 87 Peak BP (mmHg): 168 / 81 MPHR: 167 Target HR: 142 % MPHR: 88 METS: 9.9 Total Dose: Peak Dose: Atropine: Double Product: 67535 BP Response: Stress Termination: Reached target heart rate Stress Symptoms: DIZZINESS Stress Summary: The hemodynamic response to exercise was normal , The patient's target heart rate was achieved ECG ANALYSIS Resting ECG: Sinus rhythm. Normal conduction. No arrhythmias. Normal repolarization. Stress ECG: No ECG evidence of ischemia with exercise. CONCLUSIONS No chest discomfort with stress test. Normal ST segment response to stress. Nuclear test results to follow. Dr. Zara Barnard MD (Electronically Signed) Final Date: 17 January 2023 11:46
--- NOTE | 2023-01-17 13:10 | CA ---
Transthoracic Echo Report Name: So Torrez Age: 52 Gender: F : 1970 Exam Date: 01/17/2023 09:33 Exam Location: [facility] Ht (in): 68 Wt (lb): 217 Ordering Physician: Darren Marks DO ([email or web address]) Attending/Referring Phys: Stevedoring Supervisor Maria Luisa Stewart RDCS Procedure CPT: Indications: re: CP Cardiac Hx: Technical Quality: Fair Contrast 1: Total Dose (mL): Contrast 2: Total Dose (mL): MEASUREMENTS (Male / Female) Normal Values 2D ECHO LV Diastolic Diameter PLAX 4.4 cm 4.2 - 5.9 / 3.9 - 5.3 cm LV Systolic Diameter PLAX 3.0 cm IVS Diastolic Thickness 0.9 cm 0.6 - 1.0 / 0.6 - 0.9 cm LVPW Diastolic Thickness 0.8 cm 0.6 - 1.0 / 0.6 - 0.9 cm LV Relative Wall Thickness 0.4 RV Internal Dim ED PLAX 3.5 cm LA Volume 36.4 cm??? 18 - 58 / 22 - 52 cm??? M-MODE Aortic Root Diameter MM 3.3 cm LA Systolic Diameter MM 4.6 cm LA Ao Ratio MM 1.4 AV Cusp Separation MM 2.0 cm DOPPLER AV Peak Velocity 183.1 cm/s AV Peak Gradient 13.4 mmHg AV Mean Velocity 121.4 cm/s AV Mean Gradient 6.7 mmHg AV Velocity Time Integral 36.9 cm LVOT Peak Velocity 116.1 cm/s LVOT Peak Gradient 5.4 mmHg LVOT Velocity Time Integral 31.1 cm MV Area PHT 4.3 cm??? Mitral E Point Velocity 63.2 cm/s Mitral A Point Velocity 74.7 cm/s Mitral E to A Ratio 0.8 MV Deceleration Time 176.3 ms MV E' Velocity 11.3 cm/s Mitral E to MV E' Ratio 5.6 TR Peak Velocity 230.9 cm/s TR Peak Gradient 21.3 mmHg Right Ventricular Systolic Press 26.3 mmHg FINDINGS Left Ventricle Normal left ventricular size, wall thickness, systolic function with no obvious regional wall motion abnormalities. Normal left ventricular diastolic filling pattern for age. The ejection fraction is visually estimated at 55-60 %. Right Ventricle The right ventricle is normal in size and function. Right ventricular systolic pressure within normal limits. Right Atrium The right atrium is normal in size. Left Atrium The left atrium is normal in size. Mitral Valve Structurally normal mitral valve without significant stenosis or prolapse. There is no mitral regurgitation. Aortic Valve Structurally normal aortic valve without significant sclerosis or stenosis. There is no aortic regurgitation. Tricuspid Valve Structurally normal tricuspid valve without significant stenosis. Pulmonary artery systolic pressure is normal. Trace tricuspid regurgitation. Pulmonic Valve Structurally normal pulmonic valve without significant stenosis. There is no pulmonic regurgitation. Pericardium Normal pericardium without effusion. Aorta Normal aortic root dimension. CONCLUSIONS 1. normal left ventricular size and systolic function 2. Trace tricuspid regurgitation with normal right-sided pressure Previewed by: Dr. Zara Barnard MD (Electronically Signed) Final Date: 17 January 2023 13:09
[2023-01-17 13:13] LABS: Appearance,Urine Clear (Clear); Bilirubin,Urine Negative (Negative); Blood,Urine Trace (Negative); Color,Urine Yellow; Glucose,Urine (UA) Negative (Negative); Ketones,Urine Negative (Negative); Leukocyte Esterase,Urine Large (Negative); Mucus,Urine Occasional /hpf; Nitrite,Urine Negative (Negative); Protein,Urine Negative (Negative); RBC,Urine 2 /hpf (0-5); Specific Gravity,Urine 1.018 (1.001-1.035); Squamous Epithelial Cell,Urine 4 /hpf (0-4); Urobilinogen,Urine <2.0 mg/dL (<2.0); WBC,Urine 2 /hpf (0-5)
--- NOTE | 2023-01-17 13:17 | CT ---
EXAMINATION TYPE: CT brain wo con DATE OF EXAM: 01/17/2023 COMPARISON: 02/01/2011 INDICATION: headache DLP: 995.5 mGycm, Automated exposure control for dose reduction was used. CONTRAST: None CT of the brain is performed utilizing 3 mm thick sections through the posterior fossa and 3 mm thick sections through the remaining calvarium. Study is performed within 24 hours of arrival to the hosp ital. No abnormal hyperdensity is present to suggest an acute intracranial hemorrhage. No mass lesion is evident. No acute infarcts are evident. Some mild subtle periventricular white matter hypodensity may be prese nt, likely on the basis of chronic white matter ischemic changes. Ventricles and sulci are appropriate for the patient age. Paranasal sinuses and mastoid air cells within the [id number] are clear. IMPRESSIONS: 1. No acute intracranial process. Follow-up MRI can be performed as clinically indicated. 2. Some chronic appearing mild periventricular white matter ischemic-type change may be present.
[2023-01-17] MEDS ORDERED: ALPRAZolam 0.25 MG TAB PO PRN (14:16)
[2023-01-17] MEDS ORDERED: ASPIRIN 325 MG TAB PO STA (14:16)
[2023-01-17] MEDS ORDERED: ALPRAZolam 0.5 MG TAB PO PRN (14:16)
[2023-01-17] MEDS ORDERED: ATORVASTATIN 80 MG TAB PO STA (14:16)
[2023-01-17] MEDS ORDERED: NITROGLYCERIN SL TABS 0.4 MG TAB SUBLINGUAL PRN (14:16)
[2023-01-17] MEDS ORDERED: fentaNYL (PF) 50 MCG/ML 2 ML AMP ONE (16:40)
[2023-01-17] MEDS ORDERED: HEPARIN SODIUM 1,000 UN/ML (10ML VL) ONE (16:40)
[2023-01-17] MEDS ORDERED: VERAPAMIL 2.5 MG/ML 2 ML AMP ONE (16:44)
[2023-01-17] MEDS ORDERED: MIDAZOLAM 2 MG/2 ML VIAL IVP ONE (16:45)
[2023-01-17] MEDS ORDERED: SODIUM CHLORIDE 0.9% 1,000 ML IV ONE (16:45)
[2023-01-17] MEDS ORDERED: fentaNYL (PF) 50 MCG/ML 2 ML AMP IVP ONE (16:45)
[2023-01-17] MEDS ORDERED: LIDOCAINE 1% INJ 10MG/ML (5 ML VIAL-PF) SQ ONE (16:48)
[2023-01-17] MEDS ORDERED: HEPARIN SODIUM 1,000 UN/ML (10ML VL) IVP ONE (16:53)
[2023-01-17] MEDS ORDERED: VERAPAMIL SYRINGE (5 MG/10 ML) INTRAARTER ONE (16:53)
[2023-01-17] MEDS ORDERED: IOPAMIDOL-370 100ML BTL INJ ONE ×2 (16:57)
--- NOTE | 2023-01-17 17:03 | P.CARDCATH ---
Description of Procedure: PROCEDURES PERFORMED: Left heart catheterization, bilateral coronary angiography INDICATION: Abnormal stress test, chest pain CONSENT:I have discussed the risks, benefits and alternative therapies for the above-mentioned procedure and for both sedation/analgesia as well as necessary blood product administration, if indicated, as they pertain to this patient. The patient has indicated understanding and acceptance of the risks and procedures discussed. PROCEDURE: After the risks, benefits and alternatives of the above mentioned procedure explained in detail with the patient, informed consent was obtained. Patient was taken to the catheterization lab and prepped and draped in usual fashion. 1% lidocaine was used to anesthetize the right radial artery. A 6- Syrian sheath was placed in the right radial artery using modified Seldinger technique. Left coronary angiography was performed with a 5-Syrian JL 3.5 catheter and right coronary angiography was performed with a 5-Syrian JR5 catheter in various views. A 5-Syrian FR5 catheter was inserted into the left ventricle and pressure measurements were obtained. The right radial sheath was removed and a TR band was placed with hemostasis achieved. The patient tolerated the procedure well. Patient was transported back to the post catheterization holding area in stable condition. Conscious Sedation: Patient was monitored under the direct supervision of myself for conscious sedation using Versed and fentanyl for a total duration of [] minutes HEMODYNAMICS: Aorta: 144/82 LV: 147/5, LVDP 13 SELECTIVE CORONARY ARTERIOGRAPHY: LEFT MAIN: The left main is a large caliber vessel which bifurcates into the LAD and circumflex. There is no significant stenosis. LEFT ANTERIOR DESCENDING CORONARY ARTERY: LAD is a large caliber vessel which wraps around to the apex. There is a mid LAD stent which is widely patent and otherwise mild luminal irregularities 10% stenosis round area of the stent otherwise normal. LEFT CIRCUMFLEX CORONARY ARTERY: Left circumflex is a moderate caliber vessel without significant stenosis. RIGHT CORONARY ARTERY: The right coronary artery is a large caliber vessel which gives off a PDA and PLV branch and is the dominant vessel. There is no significant stenosis. FINAL IMPRESSION: 1. Relatively normal coronary arteries other than mild luminal irregularities of the mid LAD with patent mid LAD stent. 2. Normal left sided filling pressures PLAN: 1. Aggressive risk factor modification per most recent ACC/AHA guidelines. 2. Follow-up in the office in 1-2 weeks.
--- NOTE | 2023-01-17 17:10 | P.PN ---
Subjective Progress Note Date: 01/17/23 This is a 52 year old female who is admitted for chest pain and dizziness which has been ongoing for the last week or so. Patient did have tympanostomy tube to the left ear inserted on . Reports generalized abdominal discomfort with no nausea or vomiting. Reports numbness/tingling to the left arm. Patient had an episode of slurred speech and tachycardia last week. Brain CT was done today which is negative for acute findings. There is some chronic appearing mild periventricular white matter ischemic-type change may be present. Currently no focal neurological deficits. On prior imaging there is some degenerative changes to the cervical spine patient has done outpatient PT she states. Underwent stress test today which cannot exclude a small area of stress-induced reversible ischemia involving the inferior wall. Echocardiogram reveals normal LV size and systolic function, trace tricuspid regurgitation and normal right sided filling pressure. Patient to undergo cardiac catheterization today. Review of Systems Constitutional: Denied any fatigue denied any fever. Cardio vascular: denied any chest pain, palpitations Gastrointestinal: denied any nausea, vomiting, diarrhea Pulmonary: Denied any shortness of breath cough Neurologic denied any new focal deficits All inpatient medications were reviewed and appropriate changes in these medications as dictated in the interval history and assessment and plan. PHYSICAL EXAMINATION: GENERAL: The patient is alert and oriented x3, not in any acute distress. Well developed, well nourished. HEENT: Pupils are round and equally reacting to light. EOMI. No scleral icterus. No conjunctival pallor. Normocephalic, atraumatic. No pharyngeal erythema. No thyromegaly. CARDIOVASCULAR: S1 and S2 present. No murmurs, rubs, or gallops. PULMONARY: Chest is clear to auscultation, no wheezing or crackles. ABDOMEN: Soft, nontender, nondistended, normoactive bowel sounds. No palpable organomegaly. MUSCULOSKELETAL: No joint swelling or deformity. EXTREMITIES: No cyanosis, clubbing, or pedal edema. NEUROLOGICAL: Gross neurological examination did not reveal any focal deficits. SKIN: No rashes. Assessment Chest pain rule out acute coronary syndrome, positive stress test patient to undergo cardiac catheterization Palpitations associated with SVT; cardiology recommending outpatient event monitor Slurred speech with hypotension . Episodes of SVT; likely a combination of SVT and hypotension Hyperlipidemia Hypertension Left arm numbness/tingling likely musculoskeletal patient has cervical spine degenerative changes on prior imaging Recent left sided tympanostomy tube placement GI prophylaxis DVT prophylaxis; IV heparin Full code Plan Patient to undergo cardiac catheterization further recommendations from cardiology pending Brain CT reviewed Continue current cardiac medications and supportive care The impression and plan of care has been dictated by Leslie Bernal, Nurse Practitioner as directed. Dr. Christian MD I have performed a history and physical examination and medical decision making of this patient, discussed the same with the dictator, and agree with the dic tators assessment and plan as written, documented as a scribe. Based on total visit time, I have performed more than 50% of this visit. Objective - Vital Signs Vital signs: Vital Signs Temp 97.5 F L 01/17/23 07:00 Pulse 68 01/17/23 07:00 Resp 18 01/17/23 07:00 BP 110/66 01/17/23 10:41 Pulse Ox 96 01/17/23 12:43 FiO2 Intake & Output 01/16/23 01/17/23 01/17/23 18:59 06:59 18:59 Intake Total 442 0 Balance 442 0 Weight 98.43 kg Intake: Oral 442 0 Other: Voiding Method Toilet Toilet # Voids 3 2 - Labs CBC & Chem 7: 01/16/23 05:45 01/17/23 06:14 Labs: Abnormal Lab Results - Last 24 Hours (Table) 01/17/23 Range/Units 11:40 Urine Blood Trace H (Negative) Ur Leukocyte Esterase Large H (Negative) Urine Mucus Occasional H (None) /hpf Assessment and Plan Time with Patient: Less than 30
[2023-01-17] MEDS: ATORVASTATIN 80 MG TAB PO SCH (20:38)
[2023-01-17] MEDS: FLUTICASONE 50MCG/SPRAY NASAL 16GM NASAL SCH (20:38)
[2023-01-18] MEDS: NITROGLYCERIN OINT 1 INCH/GM PACKET TOPICAL SCH ×3 (00:10→12:07)
[2023-01-18 02:40] VITALS: RESP 14
[2023-01-18] MEDS: ACETAMINOPHEN TAB 325 MG TAB PO PRN (02:40)
[2023-01-18] MEDS ORDERED: PANTOPRAZOLE 40 MG TABLET PO SCH (07:30)
[2023-01-18 08:05] VITALS: BP 122/79; PULSE 67; TEMP 98.2
[2023-01-18] MEDS: TICAGRELOR 90 MG TAB PO SCH (08:21)
[2023-01-18] MEDS: LOSARTAN 25 MG TAB PO SCH (08:21)
[2023-01-18] MEDS: MULTIVITAMINS, THERA 1 EACH TAB PO SCH (08:22)
[2023-01-18] MEDS: ASPIRIN 81 MG PO SCH (08:22)
[2023-01-18] MEDS: NON FORMULARY DRUG (Linaclotide [Linzess] 145 MCG Capsule) PO SCH (08:22)
[2023-01-18] MEDS: METOPROLOL SUCCINATE (ER) 25 MG TAB.ER.24H PO SCH (11:54)
--- NOTE | 2023-01-18 12:10 | P.PN ---
Subjective Progress Note Date: 01/18/23 HISTORY OF PRESENTING ILLNESS Patient is a pleasant 52-year-old female with history of hypertension, hyper lipidemia, CAD status post PCI of LAD, ear fullness status post left ear tube who presents secondary episode of chest pain, lightheadedness, palpitations. Patient had prior workup approximate year ago back in February where she was having mainly left jaw and ear pain and some atypical chest pain. She eventually underwent heart catheterization at [facility] with finding of intermediate LAD lesion 50-60%. Initially this was attempted to be treated medically however had more symptoms and eventually ended up [facility] hospital and lesion appeared more significant and underwent stenting of the mid LAD lesion in February. She apparently has been followed with a Dr. Hughes and has done relatively well since. She is normally on metoprolol and losartan. She was being evaluated for ear tube placement secondary to decreased hearing on her left side and some congestion with prior GERD tube failed. Therefore she had stopped her Brilinta 5 days ago and eventually underwent tube placement. Approximately a week ago however she had an episode where she felt her heart racing when she was at work and had lightheadedness and on her apple watch noted to be heart rate 219 with narrow complex SVT, no clear evidence of A. fib. Symptoms eventually resolved and she did not go to the ER. She has not quite felt well since then. Eventually she had an episode this morning at 3 AM where she was feeling lightheaded, nauseous, chest pain radiating to her left arm and therefore came to emergency department. She has not been taking metoprolol secondary to blood pressure being on the lower end in the 80s and 90s area she denies any cough, fevers, chills. 01/17 Patient is seen today in follow-up. She states she is still having some nausea and dizziness. She states she has had dizziness for the past week. Patient is scheduled for Cardiolite stress test this morning as well as echocardiogram. She has been maintained on her home cardiac medications. Patient's heart rate has been in the 60s, blood pressure 115/77, pulse ox 97% on room air. Repeat blood work this morning reveals normal electrolytes, BUN 13 creatinine 0.65. TSH was 1.04. Telemetry is a sinus rhythm. 01/18 Yesterday, patient underwent cardiac catheterization with Dr. Marks which revealed relatively normal coronary arteries other than mild luminal irregularities of the mid LAD with patent mid LAD stent. Normal left-sided filling pressures. Recommendations were for medical management. Patient states that she is still feeling nausea, dizziness and chest pressure. Updated patient regarding the cardiac catheterization results and that her symptoms do not appear to be related to her heart. Recommend the patient follow-up with Dr. Marks and in the office, a monitor can be placed to evaluate patient for a rrhythmias. PHYSICAL EXAMINATION Vital signs reviewed. CONSTITUTIONAL: No apparent distress. HEENT: Head is normocephalic. Pupils are equal, round. Sclerae anicteric. Mucous membranes of the mouth are moist. No JVD. No carotid bruit. CHEST EXAMINATION: Lungs are clear to auscultation. No chest wall tenderness is noted on palpation or with deep breathing. HEART EXAMINATION: Regular rate and rhythm. S1, S2 heard. No murmurs, gallops or rub. ABDOMEN: Soft, nontender. Positive bowel sounds. EXTREMITIES: 2+ peripheral pulses, no lower extremity edema and no calf tenderness. NEUROLOGIC EXAMINATION: Patient is awake, alert and oriented x3. ASSESSMENT 1. Atypical chest pain, acute coronary syndrome ruled out, cardiac catheterization 01/18 no significant CAD needing to be addressed 2. CAD with prior PCI LAD 02/26 3. Palpitations with apple watch showing narrow complex SVT heart rates in the 200s, no clear evidence of A. fib 4. Slurring of words during SVT episode one week ago, likely more related to hypotension 5. Intermittent hypotension at home blood pressures in the 80s 6. Nausea, fatigue, shortness breath 7. Ear fullness, recent tube placement 8. Dizziness 1 week PLAN Discontinue losartan and Nitropaste Patient is cleared for discharge from cardiology and may follow-up with Dr. Marks in 1 week. At that time, cardiac monitoring can be obtained. Nurse practitioner note has been reviewed, I agree with the documented findings and plan of care. Patient was seen and examined. Objective - Vital Signs Vital signs: Vital Signs Temp 98.2 F 01/18/23 08:00 Pulse 67 01/18/23 08:00 Resp 14 01/18/23 08:00 BP 122/79 01/18/23 08:00 Pulse Ox 98 01/18/23 08:00 FiO2 Intake & Output 01/17/23 01/18/23 01/18/23 18:59 06:59 18:59 Intake Total 50 Balance 50 Intake: IV 50 Other: Voiding Method Toilet Toilet # Voids 2 2 - Labs CBC & Chem 7: 01/16/23 05:45 01/17/23 06:14 Labs: Abnormal Lab Results - Last 24 Hours (Table) 01/17/23 Range/Units 11:40 Urine Blood Trace H (Negative) Ur Leukocyte Esterase Large H (Negative) Urine Mucus Occasional H (None) /hpf
--- NOTE | 2023-01-18 14:55 | P.DS ---
Providers Date of admission: 01/17/23 14:47 Attending physician: Farzaneh Chang MD Consults: 01/16/23 08:12 Consult Physician Stat Consulting Provider: Darren Marks Consult Reason/Comments: chest pain known cad Do you want consulting provider notified?: Yes Primary care physician: [facility] Course: Final Diagnosis Dizziness and room spinning likely due to labrynthitis/inner ear dysfunction Recent left sided tympanostomy/T-tube placement Chest pain rule out acute coronary syndrome, positive stress test with cardiac catheterization revealing patent LAD stent Angina relieved with nitroglycerin Palpitations associated with SVT; cardiology recommending outpatient event monitor Slurred speech with hypotension . Episodes of SVT; likely a combination of SVT and hypotension Hyperlipidemia Hypertension Left arm numbness/tingling likely musculoskeletal patient has cervical spine degenerative changes Hx of coronary artery disease with prior PCI Full Code Discharge Disposition Patient is stable for discharge home. Patient to follow up with primary provider Dr. Chavez in 1 to 2 days, Dr. Villalba next , and recommended to see cardiology in 1 week outpatient. Recommended outpatient event monitor and this will be placed in the cardiology office. Patient to continue on metoprolol, recommending to discontinue losartan. Patient has been started on imdur 15 mg daily. Patient is also given script for antivert for the dizzines instructed to take three times a day as needed. Patient to keep blood pressure log for follow up. Hospital Course This is a 52 year old female who is admitted for chest pain and dizziness which has been ongoing for the last week. Patient did have tympanostomy and T-tube placement to the left ear inserted on due to loss of hearing in the left ear and ongoing issues with left neck mass/pain and hearing loss. Admitted to the hospital for chest pain with cardiology consultation. Patient continues to report dizziness described as room spinning but does have episodes where she feels lightheaded as well. Reports generalized abdominal discomfort with no nausea or vomiting. Was recently started on cipro for abnormal UA outpatient but had only take 1 dose. Reports numbness/tingling to the left arm with no focal weakness. This has been ongoing issue over the last few years and patient has been evaluated by orthopedics Dr. Lee in the past and outpatient physical therapy. Patient had an episode of slurred speech and tachycardia last week with her apple watch showing a heart rate over 200. This is likely an episode of SVT with subsequent hypotension. Brain CT was done which is negative for acute findings. There is some chronic appearing mild periventricular white matter ischemic-type change may be present. Currently no focal neurological deficits. On prior imaging there is some degenerative changes to the cervical spine. Underwent stress test today this hospital stay cannot exclude a small area of stress-induced reversible ischemia involving the inferior wall. Echocardiogram reveals normal LV size and systolic function, trace tricuspid regurgitation and normal right sided filling pressure. Patient underwent cardiac catheterization which reveals patent LAD stent with mild luminal irregularities 10% stenosis round area of the stent otherwise normal. Normal left sided filling pressures. Patient recommended for agressive risk factor modification and to follow up with cardiology in the office. In regards to the SVT patient has remained in normal sinus rhythm this hospital stay and will receive outpatient event monitor on follow up. TSH is normal at 1.040, troponin level negative x 2, BUN/creatinine 13/0.65. White count is not elevated, hemoglobin stable at 12.0. Liver enzymes normal, glucose normal at 84 and 91. Follow up urinalysis shows trace blood, large leukocyte esterase and occasional mucous. Patient is asymptomatic no dysuria, urgency or frequency. Patient continues to report some dizziness and room spinning, chest pressure about 2/10, no shortness of breath. No nausea, vomiting or diarrhea. Patient will be started on imdur as above and discharged with course of antivert. Lungs are clear S1 S2 auscultated, abdomen is soft and nontender, focal neurological exam is negative. Patient will be discharged home with the above mentioned recommendations and follow up. Please see medication reconciliation for a list of current medication. Thank you for allowing us to participate in the care of this patient. The impression and plan of care has been dictated by Leslie Bernal, Nurse Practitioner as directed. Dr. Christian MD I have performed a history and physical examination and medical decision making of this patient, discussed the same with the dictator, and agree with the dictators assessment and plan as written, documented as a scribe. Based on total visit time, I have performed more than 50% of this visit. Patient Condition at Discharge: Stable Plan - Discharge Summary Discharge Rx Participant: Yes New Discharge Prescriptions: New Pantoprazole [Protonix] 40 mg PO -BRKT #30 tab Meclizine [Antivert] 12.5 mg PO Q8HR PRN #20 tablet PRN Reason: vertigo Ondansetron Odt [Zofran Odt] 4 mg PO Q8HR PRN #12 tab PRN Reason: Nausea Isosorbide Mononitrate ER [Imdur] 15 mg PO DAILY 30 Days #15 tab Continue Aspirin [Adult Low Dose Aspirin EC] 81 mg PO DAILY Atorvastatin [Lipitor] 80 mg PO HS Fluticasone Furoate [Flonase Sensimist] 1 - 2 spray NASAL HS Ticagrelor [Brilinta] 90 mg PO BID Metoprolol Succinate (ER) [Toprol XL] 25 mg PO DAILY Ofloxacin 0.3% Ophth Soln [Ocuflox Ophth Soln] 5 drops LEFT EAR BID 5 Days #10 ml Multivitamins, Thera [Multivitamin (formulary)] 1 tab PO DAILY Linaclotide [Linzess] 145 mcg PO DAILY Discontinued Ciprofloxacin HCl [Cipro] 500 mg PO Q12HR Losartan [Cozaar] 25 mg PO DAILY hydroCHLOROthiazide [Hydrodiuril] 25 mg PO DAILY PRN PRN Reason: edema/high bp Discharge Medication List Aspirin [Adult Low Dose Aspirin EC] 81 mg PO DAILY 06/28/22 [History] Atorvastatin [Lipitor] 80 mg PO HS 01/11/23 [History] Metoprolol Succinate (ER) [Toprol XL] 25 mg PO DAILY 01/11/23 [History] Ticagrelor [Brilinta] 90 mg PO BID 01/11/23 [History] Ofloxacin 0.3% Ophth Soln [Ocuflox Ophth Soln] 5 drops LEFT EAR BID 5 Days #10 ml 01/13/23 [Rx] Fluticasone Furoate [Flonase Sensimist] 1 - 2 spray NASAL HS 01/16/23 [History] Linaclotide [Linzess] 145 mcg PO DAILY 01/16/23 [History] Multivitamins, Thera [Multivitamin (formulary)] 1 tab PO DAILY 01/16/23 [History] Isosorbide Mononitrate ER [Imdur] 15 mg PO DAILY 30 Days #15 tab 01/18/23 [Rx] Meclizine [Antivert] 12.5 mg PO Q8HR PRN #20 tablet 01/18/23 [Rx] Ondansetron Odt [Zofran Odt] 4 mg PO Q8HR PRN #12 tab 01/18/23 [Rx] Pantoprazole [Protonix] 40 mg PO AC-BRKFST #30 tab 01/18/23 [Rx] Follow up Appointment(s)/Referral(s): Magali Lee DO [Doctor of Osteopathic Medicine] - 1 Week Hieu Williamson MD [STAFF PHYSICIAN] - 01/26/23 3:15 pm Hima Chavez MD [Primary Care Provider] - 1-2 days Laz Gilliam MD [Medical Doctor] - 1 Week Braden Natarajan DO [STAFF PHYSICIAN] - 1 Week Saran Villalba DO [Doctor of Osteopathic Medicine] - 01/20/23 Activity/Diet/Wound Care/Special Instructions: Follow up with orthopedics outpatient regarding the cervical spine degeneration Follow up with cardiology in 1 to 2 weeks Follow up with neurology recommending either Dr. Natarajan or Dr. Gilliam Keep same appointment next with Dr. 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 Start imdur 15 mg daily this is a slow release nitrate. If you feeling increasingly dizzy or lightheaded notify provider. Discharge Disposition: HOME SELF-CARE
== END 2023-01-18 14:11 | disposition home or self-care (01) | DRG 287 ==
LOC: EC 05:09 → 6NMEDSUR 07:27 → OBSVTOIN 01-17 14:47
PROVIDERS: ADMIT Internal Medicine; ATTEND Internal Medicine
PROC: B2111ZZ Fluoroscopy of Multiple Coronary Arteries using Low Osmolar Contrast (ICD-10-PCS; 2023-01-17)
PROC: 4A02XM4 Measurement of Cardiac Total Activity, External Approach (ICD-10-PCS; 2023-01-17)
PROC: 4A023N7 Measurement of Cardiac Sampling and Pressure, Left Heart, Percutaneous Approach (ICD-10-PCS; principal; 2023-01-17 14:00)
DX: R07.89 Other chest pain (principal); I47.1 Supraventricular tachycardia; I25.10 Atherosclerotic heart disease of native coronary artery without angina pectoris; R00.2 Palpitations; E78.5 Hyperlipidemia, unspecified; I95.9 Hypotension, unspecified; R47.81 Slurred speech; I10 Essential (primary) hypertension; R53.83 Other fatigue; Z98.61 Coronary angioplasty status; H91.92 Unspecified hearing loss, left ear; K21.9 Gastro-esophageal reflux disease without esophagitis; M47.812 Spondylosis without myelopathy or radiculopathy, cervical region; H83.02 Labyrinthitis, left ear; Z79.02 Long term (current) use of antithrombotics/antiplatelets; Z79.82 Long term (current) use of aspirin; Z79.899 Other long term (current) drug therapy; Z82.49 Family history of ischemic heart disease and other diseases of the circulatory system; Z95.5 Presence of coronary angioplasty implant and graft
CPT/HCPCS: 36415; 70450; 71046; 78452; 80048; 80053; 81001; 83735; 84443; 84484; 85025; 85379; 85610; 85730; 93005; 93017; 93306; 93458; 94760; 99285

== ENCOUNTER → 2023-02-11 | Outpatient (CLI) | payer BC ==
--- NOTE | 2023-02-11 21:36 | MR ---
EXAMINATION TYPE: MR brain and iac wo/w con DATE OF EXAM: 02/11/2023 9:14 PM CLINICAL INDICATION:Female, 52 years old with history of H90.42; left-sided hearing loss COMPARISON: CT brain 01/17/2023 TECHNIQUE: Multi planar, multi sequence imaging was performed through the brain. Specialized thin s equences were obtained through the internal auditory canals. Pre-and post gadolinium sequences were obtained. MR contrast: IV Contrast: 9 cc Gadavist FINDINGS: The torres-white junctions, ventricular system, and cisterns appear unremarkable. Midline structures s how no abnormality. Diffusion-weighted imaging shows no evidence of restricted diffusion. The suscept ibility weighted images do not reveal any evidence for micro-hemorrhage. The bone marrow signal is within normal limits. Paranasal sinuses and mastoid air cells: Mild scattered paranasal sinus disease. Scattered high T2 si gnal within the mastoid air cells bilaterally. Visualized orbits: Orbital contents are intact. After administration of gadolinium, no abnormal enhancement is seen. The internal auditory canal sequences demonstrate no significant irregularity. The 7th cranial nerve s, 8 cranial nerves, and cerebellar pontine angles appear unremarkable. After the administration jacob olinium, no abnormal enhancement is seen within the internal auditory canals. Vascular loop: Left Type II: entering, but not extending >50% of the length of the IAC IMPRESSION: 1. No evidence of intracranial mass nor acute/subacute CVA. 2. No evidence of internal auditory canal abnormality. 3. Trace bilateral mastoid air cell effusions. 4. Left Type II vascular loop: entering, but not extending >50% of the length of the IAC
== END | disposition home or self-care (01) ==
LOC: RADMRIMAIN 21:10
PROVIDERS: ATTEND Otolaryngology
DX: H90.42 Sensorineural hearing loss, unilateral, left ear, with unrestricted hearing on the contralateral side (principal)
CPT/HCPCS: 70553; A9585

== ENCOUNTER → 2023-03-07 | Outpatient (CLI) | payer BC ==
--- NOTE | 2023-03-07 16:15 | US ---
EXAMINATION TYPE: US venous doppler duplex LE RT DATE OF EXAM: 03/07/2023 3:54 PM COMPARISON: 03/30/2019 CLINICAL INDICATION: Female, 52 years old with history of M25.561 PAIN RT KNEE, M17.11 OSTEOARTHRITIS ; currently on thinners, no prev dvt SIDE PERFORMED: right TECHNIQUE: The lower extremity deep venous system is examined utilizing real time linear array sonog kadeem with graded compression, doppler sonography and color-flow sonography. VESSELS IMAGED: Common Femoral Vein Deep Femoral Vein Greater Saphenous Vein * Femoral Vein Popliteal Vein Small Saphenous Vein * Proximal Calf Veins (* superficial vessels) Right Leg: neg for RLE dvt Results called to Jaci in the office at the time of the exam. IMPRESSION: Grayscale, color doppler, spectral doppler imaging performed of the deep veins of the lo wer extremities. There is normal flow, compressibility, vascular waveforms.
== END | disposition home or self-care (01) ==
LOC: RADUSWWP 15:15
PROVIDERS: ATTEND Orthopaedic Surgery
DX: M17.11 Unilateral primary osteoarthritis, right knee (principal); I80.3 Phlebitis and thrombophlebitis of lower extremities, unspecified; R41.3 Other amnesia; R53.83 Other fatigue

== ENCOUNTER → 2023-03-07 | Outpatient (CLI) | payer BC ==
[2023-03-08 02:36] LABS: T4, Free (Free Thyroxine) 1.36 ng/dL (0.80-1.80)
== END | disposition home or self-care (01) ==
LOC: LABWHC1 15:18
PROVIDERS: ATTEND Psychiatry & Neurology Neurology
DX: R41.3 Other amnesia (principal); R53.83 Other fatigue
CPT/HCPCS: 36415; 82306; 82607; 84439; 84481

== ENCOUNTER → 2023-06-20 | Outpatient (CLI) | payer BC ==
[2023-06-20 17:35] LABS: INR 1.1 (<1.2); Prothrombin Time 11.7 sec (10.0-12.5)
[2023-06-21 03:00] LABS: ALT 17 U/L (8-44); AST 16 U/L (13-35); Albumin 4.5 g/dL (3.8-4.9); Albumin/Globulin Ratio 2.37 Ratio (1.60-3.17); Alkaline Phosphatase 66 U/L (41-126); BUN/Creat Ratio 23.14 Ratio (12.00-20.00); Blood Urea Nitrogen 16.2 mg/dL (9.0-27.0); Calcium 9.9 mg/dL (8.7-10.3); Carbon Dioxide 27.7 mmol/L (21.6-31.8); Chloride 102 mmol/L (96-109); Globulin 1.9 g/dL (1.6-3.3); Glucose 91 mg/dL (70-110); Potassium 3.9 mmol/L (3.5-5.5); Sodium 139 mmol/L (135-145); Total Bilirubin 0.5 mg/dL (0.3-1.2); Total Protein 6.4 g/dL (6.2-8.2)
[2023-06-21 03:28] LABS: Basophils # (A) 0.02 X 10*3/uL (0.00-0.10); Basophils % (A) 0.4 %; Eosinophils # (A) 0.06 X 10*3/uL (0.04-0.35); Eosinophils % (A) 1.3 %; HCT 37.4 % (37.2-46.3); Immature Grans, Automated 0 %; Lymphocytes # (A) 1.97 X 10*3/uL (0.90-5.00); Lymphocytes % (A) 42.9 %; MCH 29.3 pg (27.0-32.0); MCHC 32.1 g/dL (32.0-37.0); MCV 91.4 FL (80.0-97.0); Mean Platelet Volume 9.9 FL (9.5-12.2); Monocytes % (A) 8.7 %; NRBC Per 100 WBC 0 X 10*3/uL (0.00-0.01); Neutrophils # (A) 2.14 X 10*3/uL (1.80-7.70); Neutrophils % (A) 46.7 %; Platelet Count 284 X 10*3/uL (140-440); RBC 4.09 X 10*6/uL (4.10-5.20); RDW 12.9 % (11.5-14.5); WBC 4.59 X 10*3/uL (4.50-10.00)
== END | disposition home or self-care (01) ==
LOC: LABWHC1 15:50
PROVIDERS: ATTEND Internal Medicine Geriatric Medicine
DX: Z01.812 Encounter for preprocedural laboratory examination (principal)
CPT/HCPCS: 36415; 80053; 83036; 85025; 85610; 85730; 87070

== ENCOUNTER → 2024-02-15 | Outpatient (CLI) | payer BC ==
--- NOTE | 2024-02-15 09:34 | US ---
EXAMINATION TYPE: US kidneys/renal and bladder DATE OF EXAM: 02/15/2024 COMPARISON: NONE CLINICAL INDICATION: Female, 53 years old with history of R31.9 HEMATURIA; microscopic hematuria, lef t back pain and pressure within left pelvis EXAM MEASUREMENTS: Right Kidney: 10.8 x 4.4 x 5.2 cm Left Kidney: 11.6 x 4.1 x 6.2 cm Right Kidney: No hydronephrosis or masses seen Left Kidney: No hydronephrosis or masses seen Bladder: wnl There is no evidence for hydronephrosis at this point in time. No nephrolithiasis is seen. No jean s are identified. The urinary bladder is anechoic. Bilateral ureteral jets are seen. IMPRESSION: No evidence for obstructive uropathy or mass. No calculi visualized.
== END | disposition home or self-care (01) ==
LOC: RADUSWWP 08:31
PROVIDERS: ATTEND Internal Medicine Geriatric Medicine
DX: R31.29 Other microscopic hematuria (principal); M54.9 Dorsalgia, unspecified
CPT/HCPCS: 76770

== ENCOUNTER → 2024-06-07 | Outpatient (CLI) | payer BC | END | disposition home or self-care (01) | LOC: LABWHC1 15:28 | PROVIDERS: ATTEND Orthopaedic Surgery | DX: Z53.9 Procedure and treatment not carried out, unspecified reason (principal) ==

== ENCOUNTER → 2024-07-13 | Outpatient (CLI) | payer BC ==
--- NOTE | 2024-07-13 16:50 | NM ---
EXAMINATION TYPE: NM bone 3 phase DATE OF EXAM: 07/13/2024 COMPARISON: NONE CLINICAL INDICATION: Female, 53 years old with history of S82.91XA FRACTURE OF RIGHT LOWER LEG; Triple phase bone scintigraphy was performed following the injection of 21.9 mCi Tc 99m MDP. Immedia te images and 3 hours post injection images acquired. FINDINGS: Suspected right knee arthroplasty with mild uptake in around the joint on delayed imaging only. Degeneration uptake of the trochlear groove seen on lateral view on delayed imaging of the left leg. There is no significant abnormal accumulation of radiotracer to suggest metastatic disease to the bon e or other significant abnormality. IMPRESSION: 1. Right knee arthroplasty without definitive evidence for fracture. 2. 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 3. No scintigraphic evidence of osseous metastatic disease. [facility], , 07/13/2024 4:48 PM
== END | disposition home or self-care (01) ==
LOC: RADNMMAIN 07:04
PROVIDERS: ATTEND Orthopaedic Surgery Sports Medicine
DX: S82.91XA Unspecified fracture of right lower leg, initial encounter for closed fracture (principal); M17.12 Unilateral primary osteoarthritis, left knee; Z96.651 Presence of right artificial knee joint; X58.XXXA Exposure to other specified factors, initial encounter
CPT/HCPCS: 78315; A9503

== ENCOUNTER → 2024-07-13 | Outpatient (CLI) | payer BC ==
--- NOTE | 2024-07-13 13:43 | CT ---
EXAMINATION TYPE: CT abdomen pelvis wo con CT DLP: 1115 mGycm, Automated exposure control for dose reduction was used. DATE OF EXAM: 07/13/2024 1:21 PM COMPARISON: CT neck chest 11/09/2021, CT chest 11/09/2021 CLINICAL INDICATION:Female, 53 years old with history of R10.31 LLQ PAIN; abdominal pressure, flank p ain TECHNIQUE: Standard CT of the abdomen and pelvis without IV or oral contrast. Lack of IV or oral co ntrast limits evaluation of solid and hollow organ viscera. Coronal and sagittal reformats were perfo rmed. FINDINGS: LOWER CHEST: Stable left lower lobe 4 mm groundglass pulmonary nodule dating back to 2021 and conside red benign (series 4, image 1). Coronary artery calcifications. ABDOMEN LIVER: Few subcentimeter hypoattenuating structures are demonstrated throughout the liver, which are too small to accurately characterize but statistically likely to represent simple hepatic cysts GALLBLADDER AND BILE DUCTS: Unremarkable noncontrast appearance. PANCREAS: Unremarkable noncontrast appearance. SPLEEN: Unremarkable noncontrast appearance. ADRENAL GLANDS: Unremarkable noncontrast appearance.. KIDNEYS AND URETERS: No evidence of hydronephrosis or renal calculus. No ureteral calculus. PELVIS BLADDER: Incompletely distended but grossly unremarkable. REPRODUCTIVE: Unremarkable noncontrast appearance. ABDOMEN & PELVIS STOMACH AND BOWEL: Stomach and duodenum are unremarkable. No focal wall thickening or surrounding inf lammatory changes. The appendix is within normal limits. No evidence of bowel obstruction. PERITONEUM: No evidence of pneumoperitoneum or free fluid. VASCULATURE: No evidence of aortic aneurysm. MUSCULOSKELETAL: No acute osseous abnormalities. Mild disc degeneration changes are present throughou t the thoracolumbar spine. LYMPH NODES: No gross evidence for lymphadenopathy. SOFT TISSUE/ABDOMINAL WALL: Tiny fat filled umbilical hernia. No evidence for inguinal hernia. IMPRESSION: No acute abdominal/pelvic process within the limitations of a noncontrast exam. [facility], , 07/13/2024 1:41 PM
== END | disposition home or self-care (01) ==
LOC: RADCTMAIN 12:37
PROVIDERS: ATTEND Internal Medicine Geriatric Medicine
DX: R10.31 Right lower quadrant pain (principal)
CPT/HCPCS: 74176